=== PATIENT | female | born 1970 | race Caucasian/White ===

== ENCOUNTER 2019-10-27 16:21 | Emergency (ER) | payer OTHER, SELFPAY ==
[2019-10-27 17:26] VITALS: BP 150/95; PULSE 98; RESP 20; TEMP 37.9; O2SAT 98
--- NOTE | 2019-10-27 17:49 | ED.URI ---
HPI - URI/Sore Throat General Chief Complaint: Upper Respiratory Infection Stated Complaint: Cough/watery eyes/Congestion/Chest Pain Time Seen by Provider: 10/27/19 17:45 Source: patient and RN notes reviewed Mode of arrival: ambulatory Limitations: no limitations History of Present Illness HPI Narrative: 49-year-old female presents with concern for fever, cough, congestion, chest pain with coughing, body aches. Reports [id number] cold and flu medicines with no relief MD elicited complaint: cough Related Data Home Medications Medication Instructions Recorded Confirmed Vitamin D 5,000 units PO DAILY 10/27/19 duloxetine 30 mg PO DAILY 10/27/19 10/27/19 spironolactone 25 mg PO DAILY 10/27/19 10/27/19 tizanidine 2 mg PO HS 10/27/19 10/27/19 Allergies Allergy/AdvReac Type Severity Reaction Status Date / Time No Known Allergies Allergy Mild Unverified 04/19/19 07:40 Review of Systems Review of Systems: Narrative: CONSTITUTIONAL: Reports malaise, chills, sweats, or fever. EYES: Denies visual changes, redness, or discharge. ENT: Reports rhinorrhea, congestion. Denies sinus pain, otalgia and sore throat. CARDIOVASCULAR: Denies chest pain, palpitations, or edema. RESPIRATORY: Reports cough, chest congestion, chest pain with coughing. Denies dyspnea. GASTROINTESTINAL: Denies abdominal pain, nausea, vomiting, diarrhea SKIN: Denies rash or itching. MUSCULOSKELETAL: Reports myalgia. NEUROLOGIC: Denies headache. All systems reviewed & are unremarkable except as noted in HPI and below PMFSH Comments At time of signature, agree with nursing past medical, surgical, social and family history. There is no relevant family history pertinent to the presenting complaint Exam Narrative: Exam Narrative: GENERAL: Well-appearing, well-nourished, and in no acute distress. HEAD: Normocephalic EYES: PERRLA, conjunctivae clear ENT: Nares clear, turbinates edematous and erythematous, clear discharge. Mucous membranes moist. TM pearly presley with dull light reflex bilaterally; no tragal tenderness. Oropharynx not erythematous without lesions. Tonsils not enlarged and without exudate, no drooling, no hoarseness, no trismus. NECK: Supple. No lymphadenopathy CHEST: Clear to auscultation, breath sounds equal. No wheezing, rhonchi, rales, or stridor. No respiratory distress, speaks in full sentences. HEART: Regular rate and rhythm. No murmur heard. Normal peripheral pulses. SKIN: Warm, dry, no rash. NEURO: Alert and oriented x3. PSYCH: Normal mood and affect Course Course Emergency Course: Patient is aware of diagnosis, understands and agrees to treatment plan. Anticipatory guidance given. Patient agrees to follow-up as directed and is aware of reasons to seek care at the emergency department. Portions of this record may have been created with voice recognition software Vital Signs Vital signs: Vital Signs Temperature 100.2 F H 10/27/19 17:26 Pulse Rate 98 10/27/19 17:26 Respiratory Rate 10/27/19 17:26 Blood Pressure 150/95 H 10/27/19 17:26 Pulse Oximetry 98 10/27/19 17:26 Temperature 100.2 F H 10/27/19 17:26 Pulse Rate 98 10/27/19 17:26 Respiratory Rate 10/27/19 17:26 Blood Pressure 150/95 H 10/27/19 17:26 Pulse Oximetry 98 10/27/19 17:26 Reviewed. Patient has been instructed to follow up with her primary care provider within the next week regarding her elevated blood pressure today. MDM - URI/Sore Throat MDM Narrative Medical decision making narrative: Differential diagnosis considered: Strep pharyngitis, allergic rhinitis, upper respiratory tract infection, sinusitis, rhinosinusitis, nasopharyngitis. viral pharyngitis, otitis media, otitis externa, pneumonia, bronchitis, viral cough syndrome, viral syndrome, and influenza. Exam findings show no acute concerns or changes; patient is non-toxic appearing and is in no distress. Patient is appropriate for outpatient treatment and follow-up. Lab Data Attest
== END 2019-10-27 18:00 | disposition home or self-care (01) ==
PROVIDERS: Emergency Provider Nurse Practitioner; PCP Internal Medicine
DX: J10.1 Influenza due to other identified influenza virus with other respiratory manifestations (principal); M79.7 Fibromyalgia; R25.1 Tremor, unspecified
CPT/HCPCS: 87804; 99213; G0463

== ENCOUNTER 2023-09-06 11:34 | Outpatient (CLI) | payer OTHER, SELFPAY ==
--- NOTE | ~2023-09-06 | XR_ITS ---
AP and lateral views of the bilateral hips Clinical history: Pain Findings: No acute fracture or dislocation is seen. Osseous alignment is anatomic. Bilateral hip and SI joint spaces are preserved. Soft tissues are unremarkable. Impression: No significant abnormality is seen. Reviewed, dictated and finalized at location . BINDER CHIEF Impression: No significant abnormality is seen.
--- NOTE | ~2023-09-06 | XR_ITS ---
Lumbosacral Spine: AP and lateral views Clinical History: Pain Findings: The normal lordotic curve is maintained. The vertebral bodies and posterior elements are i ntact. There is advanced degenerative disc narrowing at L2-L3. There is 3 mm anterolisthesis of L3 ov er L4. There is 4 mm anterolisthesis of L4 over L5. There is moderate to advanced facet arthropathy f rom L2 through S1. The sacroiliac joints are normally outlined. Impression: Moderate degenerative spondylosis, as above. Grade 1 retrolisthesis of L3 over L4, and L4 over L5, as detailed above. Reviewed, dictated and finalized at location M. GE TENDER Impression: Moderate degenerative spondylosis, as above. Grade 1 retrolisthesis of L3 over L4, and L4 over L5, as detailed above.
== END 2023-09-06 11:35 | disposition home or self-care (01) ==
LOC: CHSIMG 11:36
PROVIDERS: PCP Internal Medicine; Visit Provider Internal Medicine
DX: M54.50 Low back pain, unspecified (principal); M79.606 Pain in leg, unspecified; M43.06 Spondylolysis, lumbar region
CPT/HCPCS: 72100; 73521

== ENCOUNTER 2024-06-20 16:47 | Outpatient (CLI) | payer OTHER, SELFPAY ==
[2024-06-20 17:50] LABS: CRP < 0.1 mg/dL (0.0-0.9); Creatine Kinase 237 U/L (26-192)
[2024-06-22 10:24] LABS: Anti Nuclear Antibody Pattern Nuclear, Homogeneous
[2024-06-23 14:57] LABS: Aldolase 5.2 U/L (< OR = 8.1)
== END 2024-06-20 16:48 | disposition home or self-care (01) ==
LOC: CHSLAB 16:49
PROVIDERS: PCP Internal Medicine; Visit Provider Internal Medicine
DX: R74.8 Abnormal levels of other serum enzymes (principal)
CPT/HCPCS: 36415; 82085; 82550; 86038; 86039; 86140

== ENCOUNTER 2025-03-09 13:00 | Emergency (ER) | payer OTHER, SELFPAY ==
--- OUTSIDE RECORDS SUMMARY | 2025-03-09 13:06 | XMS_ITS | Encounter Summary ---
Author Organization [facility] Address 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 thurs am PROTIME: INR: 1.5 DOSING INSTRUCTIONS 7 RANGE: 2-3 spoke with pt cont lovenox for now--pt thinks this causing rash , plan dc akil 03/15/07 08:56 am ADDITIONAL TEST REQUESTS/ORDERS: . 453.8-DEEP VEIN THROMBOSIS LAB ORDERS: Order number: [id number] Test Ordered: PT WITH INR 8847 fax order to [facility] on [facility] RUN STAT ON devon 03/15/07 01:56 pm STAFF FOLLOW UP: . above lab order faxed to [facility]. /maricel Electronically Signed by: Ángela Rae on Thursday, March 15, 2007 * Jose F Broussard MD - 01/18/2008 10:59 AM CDT WEIGHT: 203lbs BLOOD PRESSURE: 140/80 Right Arm Sitting NURSE NAME: Edgar Lou N TOBACCO USE Patient does not currently use tobacco. CHIEF COMPLAINT Rash all over, itches HISTORY: HISTORY: 272.4-HYPERLIPIDEMIA lab pend, trying diet 729.5-PAIN LIMB (LEG OR ARM) improving, no med currently 783.1-ABNORMAL WEIGHT GAIN dec exercise recent 782.1-RASH since in hospital--chemical vs med, on lovenox and warfarin 453.8-DEEP VEIN THROMBOSIS on med as above ROS: ENDOCRINE: No heat or cold intolerance, no excessive thirst. CARDIAC: No chest pain, palpitations, orthopnea, dyspnea on exertion, or paroxysmal nocturnal dyspnea. RESPIRATORY: No dyspnea, cough, hemoptysis or wheezing. : No frequency, urgency, hematuria or dysuria. GI: No abdominal pain, nausea, vomiting, diarrhea, constipation, melena, or hematochezia. PAST MEDICAL HISTORY: reviewed FAMILY HISTORY: father PE SOCIAL HISTORY: PHYSICAL EXAMINATION: CONSTITUTIONAL: GENERAL APPEARANCE: Healthy appearing patient in no distress. EARS, NOSE, MOUTH AND THROAT: ORAL: Inspection of gums, lips, palate, and teeth normal. No scars, lesions, or masses. Oral mucosaunremarkable with non-inflamed posterior pharynx. NECK/THYROID: Trachea midline. No thyroid enlargement, tenderness, or mass. No supraclavicular or cervical adenopathy. RESPIRATORY: Clear to auscultation and percussion. Normal respiratory effort. CARDIOVASCULAR: CARDIAC: Regular rhythm. No murmurs, rubs, or gallops. ARTERIAL: No aortic bruits. EDEMA/VARICOSITIES OF EXTREMITIES: No edema or varicosities. GASTROINTESTINAL: ABDOMEN: Soft, non-tender, without masses. Bowel sounds active. LIVER/SPLEEN/KIDNEY: No hepatosplenomegaly, tenderness or nodularity. Kidneys not palpable. SKIN: maculopap rash diffuse trunk and ext ASSESSMENT/PLAN: 729.5-PAIN LIMB (LEG OR ARM) improving minimal tyl only , pt instructed no NSAID's 783.1-ABNORMAL WEIGHT GAIN reassess lab pend, cont try diet 453.8-DEEP VEIN THROMBOSIS off BCP--was on Loestrin, discussed, possible familial issues, check labtoday cont adj med LAB ORDERS: Order number: [id number] Test Ordered: PT WITH INR 4020 today 782.1-RASH med vs other, plan dc lovenox as soon as lab ok, if from warfarin will be a problem, consider try brand, for now ok cream, claritin daily MEDICATIONS: TRIAMCINOLONE ACETONIDE EXTERNAL CREAME 0.1 %, DIRECTED, 60 Dispensed, status: NEW PRESCRIPTION,03/14/2007. PREVENTIVE COUNSELING The patient was counseled. Patient Education: Risks, benefits, and possible side effects of medication(s) were reviewed with the patient. The adverse effects of Coumadin were discussed with the patient including the following:easy bruising, bleeding into the head, nose, intestine, and kidneys. The patient is aware of the need to contact the physician prior to any surgical and dental procedures. The patient was warned about the need to completely avoid any aspirin or anti-inflammatory products as well as any qiyk-ucj-swbnssz medications containing vitamin K. RETURN VISIT : Patient instructed to return in 1 month.note for off work until 03/21 Electronically Signed by: Jose F Broussard MD on Wednesday, March 14, 2007 documented in this encounter Plan of Treatment Not on file documented as of this encounter Visit Diagnoses Not on filedocumented in this encounter Care Teams Surgical Services Manager Relationship Specialty Start Date End Date Jose F Broussard MD [address] [place] [phone] PCP - General 03/09/07 documented as of this encounter
--- OUTSIDE RECORDS SUMMARY | 2025-03-09 13:06 | XMS_ITS | Encounter Summary ---
Author Organization [facility] Address [address] [place] [address] Care Team Providers Care Civil Engineering Designer Name Role Phone Jose F Broussard MD Primary Care Provider [phone] Encounter Details Date Type Department Care Team (Late st Contact Info) Description 06/03/[address] 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 [place] Gender Identity Not on file Sexual Orientation Not on file documented as of this encounter Last Filed Vital Signs Vital Sign Reading Time Taken Comments Blood Pressure 110/70 06/03/2004 11:00 AM CDT Pulse - - Temperature 36.9 C (98.4 F) 06/03/2004 11:00 AM CDT Respiratory Rate - - Oxygen Saturation - - Inhaled Oxygen Concentration - - Weight 78.5 kg (173 lb) 06/03/2004 11:00 AM CDT Height - - Body Mass Index - - documented in this encounter Plan of Treatment Not on file documented as of this encounter Visit Diagnoses Not on filedocumented in this encounter Care Teams Civil Engineering Designer Relationship Specialty Start Date End Date Jose F Broussard MD [address] [place] [phone] PCP - General 03/09/07 documented as of this encounter
--- OUTSIDE RECORDS SUMMARY | 2025-03-09 13:06 | XMS_ITS | Encounter Summary ---
Author Organization [facility] Address 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 ALTERNATIVE PHONE NUMBER: [phone] PHARMACY NUMBER: [phone] SECTION 1: REQUESTED ACTION kenzie 03/25/07 at 09:56 am: MEDICATION REQUEST: MEDICATION REQUEST: Patient requests a refill. Pt needs script od G-coumadin 1mg Pt taking 7mg & 8mg every other day DOCTOR`S RESPONSE: silkec 03/25/07 at 10:35 am MEDICATIONS: COUMADIN ORAL TABLET 5 MG, 1 Every Day, 30 Dispensed, 11 Fills, status: NEW PRESCRIPTION, 03/25/2007. COUMADIN ORAL TABLET 1 MG, DIRECTED, 100 Dispensed, 5 Fills, status: NEW PRESCRIPTION, 03/25/2007. please advise patient about different doses- cont same doses 03/06 FINAL ACTION: karl 03/25/07 at 11:07 am Spoke with patient 03/25/07 at 11:08 am. Called pharmacy at 03/25/07 at 11:07 am. Electronically Signed by: Antionette Dave on Sunday, March 25, 2007 documented in this encounter Plan of Treatment Not on file documented as of this encounter Visit Diagnoses Not on filedocumented in this encounter Care Teams Interior Block Wirer Relationship Specialty Start Date End Date Jose F Broussard MD [address] [place] [phone] PCP - General 03/09/07 documented as of this encounter
--- OUTSIDE RECORDS SUMMARY | 2025-03-09 13:06 | XMS_ITS | Encounter Summary ---
Author Organization [facility] Address [address] [place] [address] Care Team Providers Care Protection Chief Industrial Plant Name Role Phone Jose F Broussard MD Primary Care Provider [phone] Encounter Details Date Type Department Care Team (Late st Contact Info) Description 07/20/2005 Outpatient Historical [facility] Internal Medicine [address] [address] Jose F Broussard MD [address] [place] [phone] Social History Tobacco Use Types Packs/Day Years Used Date Smoking Tobacco: Never Assessed Comments Unknown Sex and Gender Information Value Date Recorded Sex Assigned at Not on file Legal Sex Female 4:57 AM HEADER BOSS Gender Identity Not on file Sexual Orientation Not on file documented as of this encounter Last Filed Vital Signs Vital Sign Reading Time Taken Comments Blood Pressure 130/80 07/20/2005 1:45 PM HEADER BOSS Pulse - - Temperature 36.8 C (98.2 F) 07/20/2005 1:45 PM HEADER BOSS Respiratory Rate - - Oxygen Saturation - - Inhaled Oxygen Concentration - - Weight 78 kg (172 lb) 07/20/2005 1:45 PM HEADER BOSS Height - - Body Mass Index - - documented in this encounter Plan of Treatment Not on file documented as of this encounter Visit Diagnoses Not on filedocumented in this encounter Care Teams Protection Chief Industrial Plant Relationship Specialty Start Date End Date Jose F Broussard MD [address] [place] [phone] PCP - General 03/09/07 documented as of this encounter
--- OUTSIDE RECORDS SUMMARY | 2025-03-09 13:06 | XMS_ITS | Encounter Summary ---
Author Organization [facility] Address 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 [address] D.O.B: 1970 SSN: [id number] Parent/Guardian if applicable: Patient Insurance: [employer] ID#: [id number] Group#: ORDER(S) #: [id number] fredy blood flow MAY WE LEAVE MESSAGE AT THAT NUMBER: PLEASE SCHEDULE THE APPOINTMENT AT THE FOLLOWING LOCATION: WHERE SCHEDULED.[facility] [phone] SPECIAL SCHEDULING INSTRUCTIONS: scheduled 03-09-07 ORDERING PHYSICIAN: LAWANDA RON MD OFFICE RESPIRATORY CARE INSTRUCTOR & PHONE: Katt Berrios E * Lawanda Ron MD - 01/18/2008 9:44 AM CDT WEIGHT: 202lbs BLOOD PRESSURE: 120/80 Left Arm Sitting NURSE NAME: Colleen Welch R CHIEF COMPLAINT Patient complains of pain. right calf HISTORY: HISTORY: 311-DEPRESSION off med has been doing ok 783.1-ABNORMAL WEIGHT GAIN The patient denies muscle cramps, muscle spasms, weakness, or undue fatigue.on diet , ex daily, wt cont to inc 272.4-HYPERLIPIDEMIA not rechecked, watching diet 729.5-PAIN LIMB (LEG OR ARM) severe right le pain, no def injury but may have occurred on elliptical or other, father dvt 2 mo ago, dx post mortem ROS: ENDOCRINE: No heat or cold intolerance, no excessive thirst. CARDIAC: No chest pain, palpitations, orthopnea, dyspnea on exertion, or paroxysmal nocturnal dyspnea. RESPIRATORY: No dyspnea, cough, hemoptysis or wheezing. : No frequency, urgency, hematuria or dysuria. GI: No abdominal pain, nausea, vomiting, diarrhea, constipation, melena, or hematochezia. FAMILY HISTORY: father DVT SOCIAL HISTORY: TOBACCO USE: Has no significant smoking history. DISCUSSED SMOKING: neg. ALCOHOL: Does not give any significant history of alcohol usage. PHYSICAL EXAMINATION: CONSTITUTIONAL: GENERAL APPEARANCE: Healthy appearing patient in no distress. NECK/THYROID: Trachea midline. No thyroid enlargement, tenderness, or mass. No supraclavicular or cervical adenopathy. RESPIRATORY: Clear to auscultation and percussion. Normal respiratory effort. CARDIOVASCULAR: CARDIAC: Regular rhythm. No murmurs, rubs, or gallops. ARTERIAL: No aortic bruits. EDEMA/VARICOSITIES OF EXTREMITIES: No edema or varicosities. GASTROINTESTINAL: ABDOMEN: Soft, non-tender, without masses. Bowel sounds active. LIVER/SPLEEN/KIDNEY: No hepatosplenomegaly, tenderness or nodularity. Kidneys not palpable. MUSCULOSKELETAL EXAM: right calf tender, no edema no cord, full rom SKIN: SKIN: Warm, dry, no diaphoresis, no significant lesions, irritation, rashes or ulcers. No induration, obvious subcutaneous nodules or tightening. ASSESSMENT/PLAN: 311-DEPRESSION discussed hold on med 783.1-ABNORMAL WEIGHT GAIN discussed, cont diet and ex, recheck lab 729.5-PAIN LIMB (LEG OR ARM) m skel vs other r/o dvt with fhx MEDICATIONS: FLEXERIL ORAL TABLET 10 MG, 1 Every Day At Bedtime, 20 Dispensed, status: NEW PRESCRIPTION, 03/09/2007. LAB ORDERS: Order number: [id number] Test Ordered: VENOUS BLOOD FLOW (LOWER EXR) hold and call 272.4-HYPERLIPIDEMIA recheck lab was high in 05 LAB ORDERS: fasting Order number: [id number] Test Ordered: COMPREHENSIVE METABOLIC PANEL & GFR 1112 Order number: [id number] Test Ordered: LIPID PANEL 1078 Order number: [id number] Test Ordered: TSH 1720 PREVENTIVE COUNSELING The patient was counseled regarding diet, regular sustained exercise for at least 30 minutes 3-4 times per week. Patient Education: The patient was allowed to ask questions to stated satisfaction. RETURN VISIT : Instructed to call if not improving. Electronically Signed by: Lawanda Ron MD on Friday, March 09, 2007 documented in this encounter Plan of Treatment Not on file documented as of this encounter Visit Diagnoses Not on filedocumented in this encounter Care Teams Fixed Wing Aircraft Crew Chief Relationship Specialty Start Date End Date Lawanda Ron MD [address] [place] [phone] PCP - General 03/09/07 documented as of this encounter
--- OUTSIDE RECORDS SUMMARY | 2025-03-09 13:06 | XMS_ITS | Encounter Summary ---
Author Organization [facility] Address 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
--- OUTSIDE RECORDS SUMMARY | 2025-03-09 13:06 | XMS_ITS | Encounter Summary ---
Author Organization [facility] Address [address] [place], [place] [address] [address] Care Team Providers Care Casino Shift Manager Name Role Phone Unavailable Primary Care Provider Unavailabl e Encounter Details Date Type Department Care Team (Late st Contact Info) Description 04/19/2019 Lab Requisition [facility] Care Pathology Lab [address] [place] [address] Rainer Ba MD [address] [place] [address] Social History Tobacco Use Types Packs/Day Years Used Date Smoking Tobacco: Never Assessed Comments Unknown Sex and Gender Information Value Date Recorded Sex Assigned at Not on file Legal Sex Female 10:37 AM CDT Gender Identity Not on file Sexual Orientation Not on file documented as of this encounter Plan of Treatment Not on file documented as of this encounter Procedures Procedure Name Priority Date/Time Associated Diagnosis Comments FLOW CYTOMETRY BONE MARROW Routine 04/19/2019 9:05 AM CDT documented in this encounter Results * FLOW CYTOMETRY BONE MARROW (04/19/2019 9:05 AM CDT) Case Report Flow Cytometry Case: [id number] Authorizing Provider: Rainer Ba MD Collected: 04/19/2019 09:05 AM Ordering Location: [facility] Care Pathology Lab Received: 04/19/2019 10:41 AM Pathologist: Merlyn Hidalgo MD Specimen: Bone Marrow 04/19/2019 1:48 PM CDT [facility] Final Diagnosis Bone marrow, flow cytometric immunophenotypic analysis: - No evidence of non-Hodgkin lymphoma or high grade myeloid neoplasm. - See interpretation. 04/19/2019 1:48 PM CDT [facility] at 1348 CDT Flow Cytometry Interpretation The bone marrow specimen has a viability of 95%. The lymphocyte, dim CD45, monocyte, and granulocyte vang are normal in relative proportion. Within the lymphocyte region, there is no monoclonal B-cell population identified (kappa:lambda ratio is 1.6:1). There is no expanded T-cell population seen. Within the dim CD45 region, there is no increase in blasts (0.5% of all events). A bone marrow aspirate smear prepared from the flow cytometry specimen is reviewed for quality review specialist purposes. In summary, the bone marrow specimen shows no evidence of a non-Hodgkin lymphoma or high grade myeloid neoplasm. Correlation with additional clinical information and the concurrent bone marrow biopsy specimen is required. KR 04/19/2019 1:48 PM T [facility] Flow Cytometry Results Differential Result Comment Flow Cell Count /uL 42,000 Total Viability % 95.0 Lymphocytes % 19 Dim CD45 Region % 2 Monocytes % 6 Granulocytes % 70 04/19/2019 1:48 PM T [facility] Reason for test Leukocytosis 019 1:48 PM T [facility] Client Specimen ID # [id number] 04/19/2019 1:48 PM [facility] Number of markers 10 were performed. A-2 Flow CD10 A-3 Flow CD13 A-5 Flow CD20 A-1 Flow CD5 A-4 Flow CD19 A-6 Flow CD33 A-7 Flow CD34 A-8 Flow CD45 A-9 Campbell+CD19+ A-10 Lambda+CD19+ 04/19/2019 1:48 PM T [facility] Disclaimer Test performed at [facility], [address] [place] [address], [id number]. *The established laboratory minimum viability is 70%. Values below the minimum may result in the failure to find an abnormal population of cells. This test was developed and its performance characteristics determined by the Flow Cytometry Laboratory. It has not been cleared by the [place] Food and Drug Administration (FDA). The FDA has determined that such clearance or approval is not necessary. This test is used for clinical purposes. It should not be regarded as investigational or for research. This laboratory is regulated under the Clinical Laboratory Improvement Amendments of 1998 (CLIA) as a qualified to perform high complexity clinical testing. 04/19/2019 1:48 PM CDT [facility] Embedded Images 9 1:48 PM CDT [facility] Pathology/Cytolo gy BONE MARROW SPECIMEN / Unknown 04/19/2019 9:05 AM CDT 04/19/2019 10:41 AM CDT Rainer Ba MD LAB - PATHOLOGY/CYTOLOGY ORDER MARZENA Final Result Performing Organization Address City/State/[facility] Co de Phone Number [facility] [address] [phone] documented in this encounter Visit Diagnoses Not on filedocumented in this encounter
--- OUTSIDE RECORDS SUMMARY | 2025-03-09 13:06 | XMS_ITS | Clinical Summary ---
Author Organization [facility] Address [address] [place] [address] Phone Care Team Providers Care Hose Maker Name Role Phone Barry Bowens MD Primary Care Provider [phone] Encounters Date Type Department Care Team Description 02/26/2025 1:30 PM CDT - 02/26/2025 11:59 PM CDT [facility] [address] [place] [id number] Barry Bowens MD Discharge Disposition: Discharged to home or Selfcare 02/26/2025 Travel 02/19/2025 [facility] [address] [place] [address] Barry Bowens MD Encounter for screening mammogram for breast cancer (Primary Dx) from Last 3 Months Social History Tobacco Use Types Packs/Day Years Used Date Smoking Tobacco: Never Assessed Comments No Sex and Gender Information Value Date Recorded Sex Assigned at Not on file Legal Sex Female 10:52 PM CDT Gender Identity Not on file Sexual Orientation Not on file Plan of Treatment Health Maintenance Due Date Last Done Comments Hepatitis C Virus (HCV) Screening 1969 Hepatitis B Immunization (1 of 3 - 19+ 3-dose series) 1988 Cologuard 2014 Colonoscopy 2014 Colorectal Cancer Screening 2014 Immunochemical Fecal Occult Blood 2014 Influenza Immunization (#1) 04/30/202506/01, 05/30/2022, 06/25/2021, Additional history exists Mammogram 02/26/2026 02/26/2025, 05/10/2023, 12/31/2023, Additional history exists Respiratory Syncytial Virus (RSV) Immunization (Adult) (1 - 1-dose 75+ series) 2044 DTaP/Tdap/Td Immunization Discontinued 05/13/2018, TdaP Immunization Completed 05/13/2018, 09/24/2008 Zoster Immunization Completed 06/13/2022, 06/01/2022, 02/14/2022 SARS-COV-2 Immunization Completed 05/26/20 24, 06/29/2023, 09/01/2022, Additional history exists Pneumococcal Immunization (50+ years) Completed 09/11/2024, 05/15/2019 Pneumococcal Immunization Combined Discontinued 09/11/2024, 05/15/2019 Human Papillomavirus (HPV) Immunization Aged Out No longer eligible based on patient's age to complete this topic Meningococcal Immunization (ACWY) Aged Out No longer eligible based on patient's age to complete this topic Rotavirus Immunization Aged Out No lo nger eligible based on patient's age to complete this topic Procedures Procedure Name Priority Date/Time Associated Diagnosis Comments JJ SCREENING BILATERAL DIGITAL W CAD W OBDULIA Routine 02/26/2025 2:04 PM CDT Encounter for screening mammogram for breast cancer from Last 3 Months Results * JJ SCREENING BILATERAL DIGITAL W CAD W OBDULIA (02/26/2025 2:04 PM CDT) Anatomical Region Laterality Modality breast Bilateral Mammography 02/26/2025 2:00 PM CDT Narrative 02/27/2025 1:40 PM CDT - JJ SCREENING BILATERAL DIGITAL W CAD W OBDULIA BILATERAL DIGITAL SCREENING MAMMOGRAM 3D/2D WITH CAD WITH MEDIOLATERAL OBLIQUE CRANIOCAUDAL: 02/26/2025 The study was acquired using digital technology and interpreted from soft copy. Current study was also evaluated with ICAD version 7.2. 2D digital mammographic views, as well as 3D digital tomosynthesis were performed in the CC and MLO projections. CLINICAL: Routine screening. Patient has no complaints. She reports a 40 pound weight decrease. No personal history of cancer. No family history of breast cancer. COMPARISONS: Comparison is made to exams dated: 12/31/2023, 10/15/2022, and 04/30/2021 [facility]. BREAST TISSUE:There are scattered areas of fibroglandular density. FINDINGS: There are stable benign calcifications in both breasts. No significant masses, calcifications, or other findings are seen in either breast. There has been no significant interval change. IMPRESSION: BENIGN There is no mammographic evidence of malignancy. A 1 year screening mammogram is recommended. A letter will be sent to the patient with these results. The patient will be entered into a reminder system with a target due date of 1 year for her next screening exam. Electronically signed by: Chas padilla/pretty:02/26/2025 22:21:49 Compacting Machine Operator/Tender(s): RT Ana(R)(M), [facility] letter sent: Normal Exam Reading location: [facility] Mammogram BI-RADS: Category 2: Benign Procedure Note Chas Ronquillo MD - 02/27/2025 - JJ SCREENING BILATERAL DIGITAL W CAD W OBDULIA BILATERAL DIGITAL SCREENING MAMMOGRAM 3D/2D WITH CAD WITH MEDIOLATERAL OBLIQUE CRANIOCAUDAL: 02/26/2025 The study was acquired using digital technology and interpreted from soft copy. Current study was also evaluated with ICAD version 7.2. 2D digital mammographic views, as well as 3D digital tomosynthesis were performed in the CC and MLO projections. CLINICAL: Routine screening. Patient has no complaints. She reports a 40 pound weight decrease. No personal history of cancer. No family history of breast cancer. COMPARISONS: Comparison is made to exams dated: 12/31/2023, 10/15/2022, and 04/30/2021 [facility]. BREAST TISSUE:There are scattered areas of fibroglandular density. FINDINGS: There are stable benign calcifications in both breasts. No significant masses, calcifications, or other findings are seen in either breast. There has been no significant interval change. IMPRESSION: BENIGN There is no mammographic evidence of malignancy. A 1 year screening mammogram is recommended. A letter will be sent to the patient with these results. The patient will be entered into a reminder system with a target due date of 1 year for her next screening exam. Electronically signed by: Chas padilla/pretty:02/26/2025 22:21:49 Compacting Machine Operator/Tender(s): RT Ana(R)(M), [facility] letter sent: Normal Exam Reading location: [facility] Mammogram BI-RADS: Category 2: Benign Barry Bowens MD IMG MAMMO ORDERABLES Final Resu lt from Last 3 Months Insurance Care Teams Hose Maker Relationship Specialty Start Date End Date Barry Bowens MD [address] [place] [address] PCP - General Internal Medicine 12/31/23
--- OUTSIDE RECORDS SUMMARY | 2025-03-09 13:06 | XMS_ITS | Encounter Summary ---
Author Organization [facility] Address [address] [place] [address] Care Team Providers Care Title Checker Name Role Phone Jose F Broussard MD Primary Care Provider [phone] Encounter Details Date Type Department Care Team (Late st Contact Info) Description 04/14/2007 Outpatient Historical [facility] Internal Medicine [address] [address] Jose F Broussard MD [address] [place] [phone] Social History Tobacco Use Types Packs/Day Years Used Date Smoking Tobacco: Never Assessed Comments Unknown Sex and Gender Information Value Date Recorded Sex Assigned at Not on file Legal Sex Female 4:57 AM ORGANIZATION DEVELOPMENT CONSULTANT Gender Identity Not on file Sexual Orientation Not on file documented as of this encounter Last Filed Vital Signs Vital Sign Reading Time Taken Comments Blood Pressure 120/76 04/14/2007 9:00 AM CDT Pulse - - Temperature - - Respiratory Rate - - Oxygen Saturation - - Inhaled Oxygen Concentration - - Weight 93.4 kg (206 lb) 04/14/2007 9:00 AM CDT Height - - Body Mass Index - - documented in this encounter Plan of Treatment Not on file documented as of this encounter Visit Diagnoses Not on filedocumented in this encounter Care Teams Title Checker Relationship Specialty Start Date End Date Jose F Broussard MD [address] [place] [phone] PCP - General 03/09/07 documented as of this encounter
--- OUTSIDE RECORDS SUMMARY | 2025-03-09 13:06 | XMS_ITS | Encounter Summary ---
Author Organization [facility] Address [address] [place] [address] Care Team Providers Care Slurry Man Name Role Phone Jose F Broussard MD Primary Care Provider [phone] Encounter Details Date Type Department Care Team (Late st Contact Info) Description 04/22/2009 Outpatient Historical [facility] Internal Medicine [address] [address] Jose F Broussard MD [address] [place] [phone] Dysuria Social History Tobacco Use Types Packs/Day Years Used Date Smoking Tobacco: Never Alcohol Use Standard Drinks/Week Comments Yes 0 (1 standard drink = 0.6 oz pur e alcohol) Comments No Sex and Gender Information Value Date Recorded Sex Assigned at Not on file 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
--- OUTSIDE RECORDS SUMMARY | 2025-03-09 13:06 | XMS_ITS | Clinical Summary ---
Author Organization [facility] Address [address] [place] [address] Care Team Providers Care Transcriber Name Role Phone Unavailable Primary Care Provider Unavailabl e Source Comments [facility],non-owned Affiliates and Associated Physician Practices is amultiple site organization consisting of ambulatory clinics and hospital sitesin [place], [place], [place] and [place]. This disclosure is being madepursuant to the Care Everywhere program and may not contain all information available regarding this patient. Last updated 18.[facility] [employer] Social History Tobacco Use Types Packs/Day Years Used Date Smoking Tobacco: Never Assessed Comments Unknown Sex and Gender Information Value Date Recorded Sex Assigned at Not on file Legal Sex Female 10:37 AM CDT Gender Identity Not on file Sexual Orientation Not on file Plan of Treatment Health Maintenance Due Date Last Done Comments COLOGUARD (AGES 45-75) - COL ON CA SCREENING 1969 COLON MONITORING 1969 COLONOSCOPY - COLON CA SCREENING 1969 CT COLONOGRAPHY - COLON CA SCREENING 1969 Colorectal Cancer Screening 1969 FIT - COLON CA SCREENING 1969 FLEX SIG - COLON CA SCREENING 1969 LIPID TESTING 1969 MAMMOGRAM 1969 HIV SCREENING 1984 HEPATITIS C SCREENING 05/23/1987 DTAP/TDAP/TD VACCINES (1 - Tdap) 1988 HEPATITIS B VACCINE (1 of 3 - 19+ 3-dose series) 1988 PNEUMOCOCCAL VACCINE 50+ (1 of 1 - PCV) 2019 ZOSTER VACCINE (1 of 2) 2019 COVID-19 VACCINE ( - 2023-2 5 season) 2024 DEPRESSION SCREENING 08/30/2024 INFLUENZA VACCINE (#1) 2025 HIB VACCINE Aged Out No longer eligi ble based on patient's age to complete this topic HPV VACCINE Aged Out No longer eligi ble based on patient's age to complete this topic MENINGOCOCCAL (Group B) VACC INE SHARED DECISION-MAKING Aged Out No longer eligibl e based on patient's age to complete this topic MENINGOCOCCAL GROUPS A/C/Y/W VACCINE Aged Out No longer eligible b ased on patient's age to complete [place] [address]
--- OUTSIDE RECORDS SUMMARY | 2025-03-09 13:06 | XMS_ITS | Encounter Summary ---
Author Organization [facility] Address [address] [place] [address] Care Team Providers Care Equipment Monitor Phototypesetting Name Role Phone Jose F Broussard MD Primary Care Provider [phone] Encounter Details Date Type Department Care Team (Late st Contact Info) Description 03/14/2007 Outpatient Historical [facility] Internal Medicine [address] [address] Jose F Broussard MD [address] [place] [phone] Social History Tobacco Use Types Packs/Day Years Used Date Smoking Tobacco: Never Assessed Comments Unknown Sex and Gender Information Value Date Recorded Sex Assigned at Not on file 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 Gender Identity Not on file Sexual Orientation Not on file documented as of this encounter Last Filed Vital Signs Vital Sign Reading Time Taken Comments Blood Pressure 140/80 03/14/2007 11:45 AM CDT Pulse - - Temperature - - Respiratory Rate - - Oxygen Saturation - - Inhaled Oxygen Concentration - - Weight 92.1 kg (203 lb) 03/14/2007 11:45 AM CDT Height - - Body Mass Index - - documented in this encounter Plan of Treatment Not on file documented as of this encounter Visit Diagnoses Not on filedocumented in this encounter Care Teams Equipment Monitor Phototypesetting Relationship Specialty Start Date End Date Jose F Broussard MD [address] [place] [phone] PCP - General 03/09/07 documented as of this encounter
--- OUTSIDE RECORDS SUMMARY | 2025-03-09 13:06 | XMS_ITS | Encounter Summary ---
Author Organization [facility] Address [address] [place] [address] Care Team Providers Care Air Press Operator Name Role Phone Jose F Broussard MD Primary Care Provider [phone] Encounter Details Date Type Department Care Team (Late st Contact Info) Description 01/13/[address] 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 Gender Identity Not on file Sexual Orientation Not on file documented as of this encounter Last Filed Vital Signs Vital Sign Reading Time Taken Comments Blood Pressure 110/80 01/13/2005 11:15 AM CDT Pulse - - Temperature - - Respiratory Rate - - Oxygen Saturation - - Inhaled Oxygen Concentration - - Weight 84.8 kg (187 lb) 01/13/2005 11:15 AM CDT Height - - Body Mass Index - - documented in this encounter Plan of Treatment Not on file documented as of this encounter Visit Diagnoses Not on filedocumented in this encounter Care Teams Air Press Operator Relationship Specialty Start Date End Date Jose F Broussard MD [address] [place] [phone] PCP - General 03/09/07 documented as of this encounter
--- OUTSIDE RECORDS SUMMARY | 2025-03-09 13:06 | XMS_ITS | Encounter Summary ---
Author Organization [facility] Address [address] [place] [address] Care Team Providers Care Merchandise Displayer Name Role Phone Jose F Broussard MD Primary Care Provider [phone] Encounter Details Date Type Department Care Team (Latest Contact Info) Description 04/26/2009 Outpatient Historical [facility] Heart and V[facility] - [facility] [address] [place] [address] Jose F Broussard MD [address] [facility] [address] [place] [address] Embolism and Thrombosis of Other Specified Veins Social History Tobacco Use Types Packs/Day Years Used Date Smoking Tobacco: Never Alcohol Use Standard Drinks/Week Comments Yes 0 (1 standard drink = 0.6 oz pur e alcohol) Comments No Sex and Gender Information Value Date Recorded Sex Assigned at Not on file 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
--- OUTSIDE RECORDS SUMMARY | 2025-03-09 13:06 | XMS_ITS | Encounter Summary ---
Author Organization [employer] Address [address] [place] [address] Care Team Providers Care Director Of Career Services Name Role Phone Jose F Broussard MD Primary Care Provider Encounter Details Date Type Department Care Team (Late st Contact Info) Description 03/09/2007 Inpatient Historical HIS PATIENT IN A BED Buddy Rand MD [address] [place] [address] [place] [address] [facility] [address] [place] [address] Embolism and Thrombosis of Unspecified Deep Vessels of Lower Extremity (CMS/HCC) (Primary Dx) Social History Tobacco Use Types Packs/Day Years Used Date Smoking Tobacco: Never Assessed Comments Unknown Sex and Gender Information Value Date Recorded Sex Assigned at Not on file 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 Gender Identity Not on file Sexual Orientation Not on file documented as of this encounter Plan of Treatment Not on file documented as of this encounter Procedures Procedure Name Priority Date/Time Associated Diagnosis Comments PROTIME-INR Routine 03/11/2007 4:45 AM CDT CBC WITH DIFFERENTIAL Routine 03/10/2007 4:40 AM CDT CBC WITH DIFFERENTIAL Routine 03/10/2007 4:40 AM CDT PROTIME-INR Routine 03/10/2007 4:40 AM CDT TSH WITH REFLEX FT4 AND FT3 Routine 03/09/2007 8:46 PM CDT PT AND APTT Routine 03/09/2007 8:46 PM CDT CARDIOLIPIN IGG/IGM Routine 03/09/2007 8 :46 PM CDT PROTEIN S ACTIVITY Routine 03/09/2007 8: 46 PM CDT CBC WITH DIFFERENTIAL Routine 03/09/2007 8:46 PM CDT CBC WITH DIFFERENTIAL Routine 03/09/2007 8:46 PM CDT PROTEIN C ACTIVITY Routine 03/09/2007 8: 46 PM CDT LUPUS ANTICOAGULANT W/REFLEX CONFIRMATION Routine 03/09/2007 8:46 PM CDT FACTOR V LEIDEN MUTATION Routine 03/09/2007 8:46 PM CDT ANTITHROMBIN III ACTIVITY Routine 03/09/2007 8:46 PM CDT LIPID PANEL Routine 03/09/2007 8:46 PM CDT BASIC METABOLIC PANEL Routine 03/09/2007 8:46 PM CDT documented in this encounter Results * PROTIME-INR (03/11/2007 4:45 AM CDT) PROTIME 14.1 12.7 - 15.1 Seconds INTERFACE SYSTEM INR 1.1 0.9 - 1.1 INTERFACE SYSTEM Comment: INR Therapeutic Range: Adult: 2.0 - 3.0 for pulmonary embolism or prophylaxis against venous thrombosis or systemic embolization. 2.0 - 3.0 for patients with tissue heart valves. 2.5 - 3.5 for patients with mechanical heart valves or post WA. Pediatric (12 years and under): 1.5 - 3.0 Although the target range in children is not well established , INR values of 1.5 - 3.0 are recommended for most patients. Higher values have been used in children with prosthetic cardiac valves and hereditary clotting disorders. (<3 days) therapeutic ranges have not been established. 03/11/2007 4:45 AM CDT Buddy Rand MD HEMATOLOGY ORDERABLES Edited Performing Organization Address [facility] Phone Number INTERFACE SYSTEM Refer to clinic/hospital department * CBC WITH DIFFERENTIAL (03/10/2007 4:40 AM CDT) NEUTROPHILS 65 45 - 70 % INTERFAC E SYSTEM LYMPHOCYTES 23 16 - 45 % INTERFAC E SYSTEM MONOCYTES 11 3 - 13 % INTERFACE SYSTEM EOSINOPHILS 1 0 - 7 % INTERFAC E SYSTEM BASOPHILS 0 0 - 2 % INTERFACE SYSTEM NEUTROPHIL ABSOLUTE 6.29 1.90 - 7.00 K/uL INTERFACE SYSTEM LYMPHOCYTE ABSOLUTE 2.25 0.70 - 4.50 K/uL INTERFACE SYSTEM MONOCYTE ABSOLUTE 1.05 0.10 - 1.30 K/uL INTERFACE SYSTEM EOSINOPHIL ABSOLUTE 0.12 0.00 - 0.70 K/uL INTERFACE SYSTEM BASOPHILS ABSOLUTE 0.04 0.00 - 0.20 K/uL INTERFACE SYSTEM 03/10/2007 4:40 AM CDT us Leilani Cutler MD HEMATOLOGY ORDERABLES Edited Performing Organization Address [facility] Phone Number INTERFACE SYSTEM Refer to clinic/hospital department * CBC WITH DIFFERENTIAL (03/10/2007 4:40 AM CDT) WBC 9.8 4.0 - 9.8 K/uL INTERFACE SYSTEM RBC 4.38 3.90 - 4.90 M/uL INTERFACE SYSTEM HEMOGLOBIN 13.6 11.8 - 14.8 g/dL INTERFACE SYSTEM HEMATOCRIT 40.8 35.5 - 44.0 % INTERFACE SYSTEM MCV 93.2 82.0 - 99.0 fL INTERFACE SYSTEM MCH 31.1 27.2 - 32.6 pg INTERFACE SYSTEM MCHC 33.3 31.5 - 35.5 % INTERFACE SYSTEM RDW 14.2 11.5 - 14.5 % INTERFACE SYSTEM RDW-STDEV 48.2 37.1 - 48.7 fL INTERFACE SYSTEM PLATELETS 286 140 - 350 K/uL INTERFACE SYSTEM MPV 11.9 9.3 - 12.4 fL INTERFACE SYSTEM 03/10/2007 4:40 AM CDT us Leilani Cutler MD HEMATOLOGY ORDERABLES Edited Performing Organization Address City/[facility] [[email or web address]] Co de Phone Number INTERFACE SYSTEM Refer to clinic/hospital department * PROTIME-INR (03/10/2007 4:40 AM CDT) PROTIME 13.9 12.7 - 15.1 Seconds INTERFACE SYSTEM INR 1.0 0.9 - 1.1 INTERFACE SYSTEM Comment: INR Therapeutic Range: Adult: 2.0 - 3.0 for pulmonary embolism or prophylaxis against venous thrombosis or systemic embolization. 2.0 - 3.0 for patients with tissue heart valves. 2.5 - 3.5 for patients with mechanical heart valves or post WA. Pediatric (12 years and under): 1.5 - 3.0 Although the target range in children is not well established , INR values of 1.5 - 3.0 are recommended for most patients. Higher values have been used in children with prosthetic cardiac valves and hereditary clotting disorders. (<3 days) therapeutic ranges have not been established. 03/10/2007 4:40 AM CDT us Leilani Cutler MD HEMATOLOGY ORDERABLES Edited INTERFACE SYSTEM Refer to clinic/hospital department * CBC WITH DIFFERENTIAL (03/09/2007 8:46 PM CDT) NEUTROPHILS 70 45 - 70 % INTERFAC E SYSTEM LYMPHOCYTES 20 16 - 45 % INTERFAC E SYSTEM MONOCYTES 10 3 - 13 % INTERFACE SYSTEM EOSINOPHILS 1 0 - 7 % INTERFAC E SYSTEM BASOPHILS 0 0 - 2 % INTERFACE SYSTEM NEUTROPHIL ABSOLUTE 6.93 1.90 - 7.00 K/uL INTERFACE SYSTEM LYMPHOCYTE ABSOLUTE 1.94 0.70 - 4.50 K/uL INTERFACE SYSTEM MONOCYTE ABSOLUTE 0.96 0.10 - 1.30 K/uL INTERFACE SYSTEM EOSINOPHIL ABSOLUTE 0.07 0.00 - 0.70 K/uL INTERFACE SYSTEM BASOPHILS ABSOLUTE 0.02 0.00 - 0.20 K/uL INTERFACE SYSTEM 03/09/2007 8:46 PM CDT Leilani Cutler MD HEMATOLOGY ORDERABLES Edited Performing Organization Address City/[facility] de Phone Number INTERFACE SYSTEM Refer to clinic/hospital department * (ABNORMAL) CBC WITH DIFFERENTIAL (03/09/2007 8:46 PM CDT) WBC 9.9(H) 4.0 - 9.8 K/uL INTERFACE SYSTEM RBC 4.36 3.90 - 4.90 M/uL INTERFACE SYSTEM HEMOGLOBIN 13.7 11.8 - 14.8 g/dL INTERFACE SYSTEM HEMATOCRIT 40.7 35.5 - 44.0 % INTERFACE SYSTEM MCV 93.3 82.0 - 99.0 fL INTERFACE SYSTEM MCH 31.4 27.2 - 32.6 pg INTERFACE SYSTEM MCHC 33.7 31.5 - 35.5 % INTERFACE SYSTEM RDW 14.1 11.5 - 14.5 % INTERFACE SYSTEM RDW-STDEV 47.9 37.1 - 48.7 fL INTERFACE SYSTEM PLATELETS 282 140 - 350 K/uL INTERFACE SYSTEM MPV 11.5 9.3 - 12.4 fL INTERFACE SYSTEM 03/09/2007 8:46 PM CDT Leilani Cutler MD HEMATOLOGY ORDERABLES Edited Performing Organization Address [facility] Phone Number INTERFACE SYSTEM Refer to clinic/hospital department * (ABNORMAL) PROTEIN C ACTIVITY (03/09/2007 8:46 PM CDT) PROTEIN C ACTIVITY 187(H) 75 - 165 U/dL INTERFACE SYSTEM Comment: Reference ranges are not available for children or adolescents less that age 18. Performed by [facility] at [facility], [place], [place]. Note new units of measure effective 02/12/2005. Reference range values ar e not affected. Protein C may be abnormally low in the acute phase of thrombosis, other acute illnesses, liver disease, nephrotic syndrome, vitamin K deficiency, warfarin thearapy, , and estrogen-oral contraceptive use. The adult normal reference range indicated is not applicable to children or adolescents less than age 18. Comprehensive laboratory evaluation for thrombophilia with a history of premature (age 55 or younger) venous or arterial thrombosis should preferably be carried out in clinically stable patients 3 weeks after discontinuation of warfarin following an appropriate course of antithrombotic therapy. 03/09/2007 8:46 PM CDT Leilani Cutler MD HEMATOLOGY ORDERABLES Edited Performing Organization Address City/[facility] Phone Number INTERFACE SYSTEM Refer to clinic/hospital department * PROTEIN S ACTIVITY (03/09/2007 8:46 PM CDT) Pathologist [facility] PROTEIN S ACTIVITY 83 70 - 130 U/dL INTERFACE SYSTEM Comment: Performed by [facility] at [place], [place]. Note new units of measure effective 02/12/2005. Reference range values ar e not affected. 03/09/2007 8:46 PM CDT Leilani Cutler MD CHEMISTRY ORDERABLES Edited Performing Organization Address [facility] Phone Number INTERFACE SYSTEM Refer to clinic/hospital department * LUPUS ANTICOAGULANT (03/09/2007 8:46 PM CDT) Pathologist [facility] LUPUS ANTICOAGULANT Negative Negative INTERFACE SYSTEM Comment: Performed by [facility] at [facility], [place]. DRVVT (DILUTE SHAWN VIPER VENOM TIME) Negative Negative INTERFACE SYSTEM Comment:Performed by [facility] at [place], [place]. 03/09/2007 8:46 PM CDT Leilani Cutler MD HEMATOLOGY ORDERABLES Edited Performing Organization Address [facility] Phone Number INTERFACE SYSTEM Refer to clinic/hospital department * (ABNORMAL) LIPID PANEL (03/09/2007 8:46 PM CDT) CHOLESTEROL 219(H) 100 - 199 mg/dL INTERFACE SYSTEM TRIGLYCERIDE 80 10 - 149 mg/dL INTERFACE SYSTEM HDL 69(H) 40 - 59 mg/dL INTERFACE SYSTEM CHOL/HDL RATIO 3.2 2.0 - 5.0 INTER FACE SYSTEM LDL CALCULATED 134(H) <=99 mg/dL INTERFACE SYSTEM LIPID PANEL COMMENT See Below INTERFACE SYSTEM Comment: The adult ATP and pediatric NCEP classifications for lipids are available on the [facility] Intranet at: [email or web address] buy [email or web address] Select: Lab Policies and Procedures Select: Reference Ranges - Lipids 03/09/2007 8:46 PM CDT Leilani Cutler MD CHEMISTRY ORDERABLES Edited Performing Organization Address [facility] de Phone Number INTERFACE SYSTEM Refer to clinic/hospital department * TSH WITH REFLEX FT4 AND FT3 (03/09/2007 8:46 PM CDT) TSH 3.96 0.27 - 4.20 uU/mL INTERFACE SYSTEM 03/09/2007 8:46 PM CDT Leilani Cutler MD CHEMISTRY ORDERABLES Edited Performing Organization Address [facility] de Phone Number INTERFACE SYSTEM Refer to clinic/hospital department * (ABNORMAL) BASIC METABOLIC PANEL (03/09/2007 8:46 PM CDT) GLUCOSE 137(H) 65 - 99 mg/dL INTERFACE SYSTEM CREATININE 0.80 0.51 - 0.95 mg/dL INTERFACE SYSTEM CALCIUM 8.6 8.4 - 10.2 mg/dL INTERFACE SYSTEM BUN 10 6 - 20 mg/dL INTERFACE SYSTEM SODIUM 138 135 - 145 mmol/L INTERFACE SYSTEM POTASSIUM 4.0 3.5 - 4.9 mmol/L INTERFACE SYSTEM CHLORIDE 100 96 - 108 mmol/L INTERFACE SYSTEM CO2 30 22 - 30 mmol/L INTERFACE SYSTEM GFR, >60 >=60 mL/min/1. 7 sq meter INTERFACE SYSTEM GFR >60 >=60 mL/min/1. 7 sq meter INTERFACE SYSTEM Comment: Estimated GFR rate interpretative information for both Americans and non- Americans is available on the [facility] Intranet at: [email or web address] Select: Lab Policies and Procedures Select: Reference Ranges - GFR 03/09/2007 8:46 PM CDT Leilani Cutler MD CHEMISTRY ORDERABLES Edited Performing Organization Address City/[facility] de Phone Number INTERFACE SYSTEM Refer to clinic/hospital department * (ABNORMAL) PT AND APTT (03/09/2007 8:46 PM CDT) PROTIME 13.4 12.7 - 15.1 Seconds INTERFACE SYSTEM INR 1.0 0.9 - 1.1 INTERFACE SYSTEM Comment: INR Therapeutic Range: Adult: 2.0 - 3.0 for pulmonary embolism or prophylaxis against venous thrombosis or systemic embolization. 2.0 - 3.0 for patients with tissue heart valves. 2.5 - 3.5 for patients with mechanical heart valves or post [place]. Pediatric (12 years and under): 1.5 - 3.0 Although the target range in children is not well established , INR values of 1.5 - 3.0 are recommended for most patients. Higher values have been used in children with prosthetic cardiac valves and hereditary clotting disorders. (<3 days) therapeutic ranges have not been established. PTT 22.6(L) 24.4 - 36.4 Seconds INTERFACE SYSTEM Comment: PTT Therapeutic Range: Heparin Level PTT (seconds) <0.10 units/mL <53 0.10 - 0.30 units/mL 53 - 67 0.30 - 0.70 units/mL* 67 - 95* 0.70 - 1.00 units/mL 95 - 116 *corresponds to therapeutic range for unfractionated heparin Verified by repeat analysis. 03/09/2007 8:46 PM CDT Leilani Cutler MD HEMATOLOGY ORDERABLES Edited Performing Organization Address [facility] de Phone Number INTERFACE SYSTEM Refer to clinic/hospital department * ANTITHROMBIN III ACTIVITY (03/09/2007 8:46 PM CDT) ANTITHROMBIN III ACTIVITY 111 85 - 130 U/dL INTERFACE SYSTEM Comment: Performed by [facility] at [facility], [place]. 03/09/2007 8:46 PM CDT Leilani Cutler MD HEMATOLOGY ORDERABLES Edited Performing Organization Address [facility] Phone Number INTERFACE SYSTEM Refer to clinic/hospital department * CARDIOLIPIN ANTIBODY SCREEN (03/09/2007 8:46 PM CDT) Pathologist [facility] CARDIOLIPIN AB SCREEN Negative INTERFACE SYSTEM Comment: Reference range: Negative On occasion, a cardiolipin screen will yield positive results which are not confirmed by the more specific individual cardiolipin isotype assays. The screen technology is constructed to capture all possible cardiolipin positive sera. The highly specific individual cardiolipin IgM, IgG and IgA assays are used to confirm the true positive cardiolipin screen specimens, and to rule out those cardiolipin screen positive specimens that may be attributed to other undefined reactants. Lab test performed by: [employer] [place] [id number] [place], [place] JOSETTE STEWARD MD 03/09/2007 8:46 PM CDT Leilani Cutler MD CHEMISTRY ORDERABLES Edited Performing Organization Address [facility] Phone Number INTERFACE SYSTEM Refer to clinic/hospital department * FACTOR V LEIDEN MUTATION (03/09/2007 8:46 PM CDT) Pathologist [facility] FACTOR V LEIDEN MUTATION Negative Negative INTERFACE SYSTEM Comment: Mutation tested for is [id number]. Performed by [facility] at [facility], [place]. 03/09/2007 8:46 PM CDT Leilani Cutler MD HEMATOLOGY ORDERABLES Edited Performing Organization Address [facility] Phone Number INTERFACE SYSTEM Refer to clinic/hospital department documented in this encounter Visit Diagnoses Diagnosis Acute venous embolism and thrombosis of unspecified deep vessels of lower extremity- Primary documented in this encounter Care Teams Director Of Career Services Relationship Specialty Start Date End Date Jose F Broussard MD [address] [place] [address] [place] [phone] PCP - General 03/09/07 documented as of this encounter
--- OUTSIDE RECORDS SUMMARY | 2025-03-09 13:06 | XMS_ITS | Encounter Summary ---
Author Organization [facility] Address 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 Protime is high. Change dosage to the following. PROTIME: INR: 4 DOSING INSTRUCTIONS jul went high again, hold coumadin x 1d, then jul to , recheck 1 week kala 05/04/07 09:02 am STAFF FOLLOW UP: Spoke with patient and gave the following message. -tj Electronically Signed by: Lotus Cobian on Friday, May 04, 2007 documented in this encounter Plan of Treatment Not on file documented as of this encounter Visit Diagnoses Not on filedocumented in this encounter Care Teams Gold And Silver Assayer Relationship Specialty Start Date End Date Jose F Broussard MD [address] [place] [phone] PCP - General 03/09/07 documented as of this encounter
--- OUTSIDE RECORDS SUMMARY | 2025-03-09 13:06 | XMS_ITS | Encounter Summary ---
Author Organization [facility] Address 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 Gender Identity Not on file Sexual Orientation Not on file documented as of this encounter Last Filed Vital Signs Vital Sign Reading Time Taken Comments Blood Pressure 122/82 10/07/2004 11:00 AM IT HELP DESK MANAGER Pulse - - Temperature - - Respiratory Rate - - Oxygen Saturation - - Inhaled Oxygen Concentration - - Weight 81.6 kg (180 lb) 10/07/2004 11:00 AM IT HELP DESK MANAGER Height - - Body Mass Index - - documented in this encounter Plan of Treatment Not on file documented as of this encounter Visit Diagnoses Not on filedocumented in this encounter Care Teams Sleeve Ironer Relationship Specialty Start Date End Date Jose F Broussard MD [address] [place] [phone] PCP - General 03/09/07 documented as of this encounter
--- OUTSIDE RECORDS SUMMARY | 2025-03-09 13:06 | XMS_ITS | Encounter Summary ---
Author Organization [facility] Address [address] [place] [address] Care Team Providers Care Laboratory Aide Name Role Phone Jose F Broussard MD Primary Care Provider [phone] Encounter Details Date Type Department Care Team (Late st Contact Info) Description 03/09/2007 Outpatient Historical [facility] Adult Hospitalists [address] [address] Leilani Cutler MD 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
--- OUTSIDE RECORDS SUMMARY | 2025-03-09 13:06 | XMS_ITS | Encounter Summary ---
Author Organization [facility] Address 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
--- OUTSIDE RECORDS SUMMARY | 2025-03-09 13:07 | XMS_ITS | Encounter Summary ---
Author Organization [facility] Address [address] [place] [address] Care Team Providers Care Machine Washer Name Role Phone Jose F Broussard MD Primary Care Provider [phone] Encounter Details Date Type Department Care Team (Late st Contact Info) Description 07/18/2007 Orders Only [facility] Internal Medicine [address] [address] Jose F Broussard MD [address] [place] [phone] Social History Tobacco Use Types Packs/Day Years Used Date Smoking Tobacco: Never Assessed Comments Unknown Sex and Gender Information Value Date Recorded Sex Assigned at Not on file 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 Protime is ok. Continue present dosage. PROTIME: INR: 2.9 DOSING INSTRUCTIONS 9 in spite of heavy pds, not anemic, iron low, would start iron tab otc chol high, would start med kazdam 07/18/07 08:56 am MEDICATIONS: SIMVASTATIN ORAL TABLET 10 MG, 1 Every Day, 30 Dispensed, 4 Fills, status: NEW PRESCRIPTION, 07/18/2007. farrjr 07/18/07 10:49 am STAFF FOLLOW UP: Left following message. [facility] 07-18-07/3:51 spoke to pt. [facility] pharm [phone] spoke to pharm documented in this encounter Plan of Treatment Not on file documented as of this encounter Visit Diagnoses Not on filedocumented in this encounter Care Teams Machine Washer Relationship Specialty Start Date End Date Jose F Broussard MD [address] [place] [phone] PCP - General 03/09/07 documented as of this encounter
--- OUTSIDE RECORDS SUMMARY | 2025-03-09 13:07 | XMS_ITS | Clinical Summary ---
Author Organization [facility] Address [address] [place] [address] Care Team Providers Care Parish Worker Name Role Phone Jose F Broussard MD Primary Care Provider + Barry Bowens MD Unavailable [phone] Allergies No known active allergies Medications spironolactone (ALDACTONE) 25 mg tablet Take 25 mg by mouth daily 0 Active rosuvastatin (CRESTOR) 5 mg tablet 3 Active ergocalciferol, vitamin D2, (VITAMIN D2 ORAL) Active cyanocobalamin (Vitamin B-12) 250 mcg tablet daily Activ e aspirin 81 mg chewable tablet daily Acti ve losartan (COZAAR) 50 mg tablet 5 Active pregabalin (LYRICA) 50 mg capsule 5 Active Zepbound 10 mg/0.5 mL pen injector ADMINISTER 10 MG UNDER THE SKIN 1 TIME WEEKLY 5 Active Active Problems Problem Noted Date Diagnosed Date Epilepsy 10/20/2024 HLD (hyperlipidemia) 10/20/2024 Surgical History Surgery Date Site/Laterality Comments FOOT SURGERY KNEE ARTHROSCOPY SHOULDER SURGERY Right Medical History Medical History Date Comments Fibromyalgia Hypertension Depression Epilepsy (HCC) Heart murmur Hyperlipidemia Hx of blood clots Family History Medical History Relation Name Comments Blood Clot Father Family history of blood clots - (Added by TW Conv) Cancer Sister 1 Family history of malignant neoplasm - (Added by TW Conv) Mental illness Sister 2 FHx: mental i llness - (Added by TW Conv) Relation Name Status Comments Father Sister 1 Sister 2 Social History Tobacco Use Types Packs/Day Years Used Date Smoking Tobacco: Never Smokeless Tobacco: Never AUDIT-C Answer Date Recorded Q1: How often do you have a drink containing alc ohol? 2-4 times a month 10/20/2024 Average Number of Drinks Not on file 025 Frequency of Binge Drinking Not on file 10/01 Comments Unknown Sex and Gender Information Value Date Recorded Sex Assigned at Not on file Legal Sex Female 9:36 AM COMMISSIONER PUBLIC WORKS Gender Identity Not on file Sexual Orientation Not on file Obstetrics History Last Filed Vital Signs Vital Sign Reading Time Taken Comments Blood Pressure 146/88 10/20/2024 9:56 AM COMMISSIONER PUBLIC WORKS Pulse 64 10/20/2024 9:56 AM COMMISSIONER PUBLIC WORKS Temperature 36.8 C (98.2 F) 10/20/2024 9:51 AM COMMISSIONER PUBLIC WORKS Respiratory Rate 23 11/02/2022 6:19 PM COMMISSIONER PUBLIC WORKS Oxygen Saturation 100% 10/20/2024 9:56 AM COMMISSIONER PUBLIC WORKS Inhaled Oxygen Concentration - - Weight 90.9 kg (200 lb 4.8 oz) 10/20/2024 9:51 A M COMMISSIONER PUBLIC WORKS Height 170.2 cm (5' 7) 10/20/2024 9:51 AM COMMISSIONER PUBLIC WORKS Body Mass Index 31.37 10/20/2024 9:51 AM COMMISSIONER PUBLIC WORKS Plan of Treatment Health Maintenance Due Date Last Done Comments Cervical Cancer Screening 1969 Colon Cancer Screening-Colonoscopy 1969 Depression Screening 1969 Hepatitis C Screening 1969 Hepatitis B Screening 1987 Regular Well Visit/Exam 18-64 1987 Covid-19 Vaccine ( season) 2024 09/01/2022, 02/14/2022, 02/14/2022, Additional history exists Breast Cancer Screening-Mammogram 12/30/2024 12/31/2023, 12/31/2023, 12/31/2023, Additional history exists Influenza Vaccine (#1) 2025 , 06/25/2021, 06/20/2021, Additional history exists DTaP/Tdap/Td Vaccine (3 - Td or Tdap) 05/13/2028 05/13/2018, 09/24/2008 Pneumococcal vaccine <65 Aged Out 05/15/2019 No longer eligible based on patient's age to complete this topic Zoster Vaccine Completed 06/13/2022, 10/2021, 02/14/2022 Insurance UHC CHOICE PLUS UHC CHOICE PLUS [facility] CHOICE PLUS Care Teams Parish Worker Relationship Specialty Start Date End Date Jose F Broussard MD PCP - General 01/08/17 Barry Bowens MD [address] [place], [place] [id number] Referring Physician Internal Medicine 06/27/24
--- OUTSIDE RECORDS SUMMARY | 2025-03-09 13:07 | XMS_ITS | Encounter Summary ---
Author Organization [facility] Address [address] [place] [address] Care Team Providers Care Machine Operator Farmworker Name Role Phone Jose F Broussard MD Primary Care Provider [phone] Encounter Details Date Type Department Care Team (Late st Contact Info) Description 07/07/2007 Outpatient Historical [facility] Internal Medicine [address] [address] Jose F Broussard MD [address] [place] [phone] Social History Tobacco Use Types Packs/Day Years Used Date Smoking Tobacco: Never Assessed Comments Unknown Sex and Gender Information Value Date Recorded Sex Assigned at Not on file Legal Sex Female 4:57 AM CLINICAL DATA PROGRAMMER Gender Identity Not on file Sexual Orientation Not on file documented as of this encounter Last Filed Vital Signs Vital Sign Reading Time Taken Comments Blood Pressure 126/80 07/07/2007 9:00 AM CLINICAL DATA PROGRAMMER Pulse - - Temperature - - Respiratory Rate - - Oxygen Saturation - - Inhaled Oxygen Concentration - - Weight 98 kg (216 lb) 07/07/2007 9:00 AM CLINICAL DATA PROGRAMMER Height - - Body Mass Index - - documented in this encounter Plan of Treatment Not on file documented as of this encounter Visit Diagnoses Not on filedocumented in this encounter Care Teams Machine Operator Farmworker Relationship Specialty Start Date End Date Jose F Broussard MD [address] [place] [phone] PCP - General 03/09/07 documented as of this encounter
--- OUTSIDE RECORDS SUMMARY | 2025-03-09 13:07 | XMS_ITS | Encounter Summary ---
Author Organization [facility] Address [address] [place] [address] Care Team Providers Care Auctioneer Art Name Role Phone Jose F Broussard MD Primary Care Provider [phone] Encounter Details Date Type Department Care Team (Late st Contact Info) Description 06/10/2007 Orders Only [facility] Internal Medicine [address] [address] Jose F Broussard MD [address] [place] [address] Social History Tobacco Use Types Packs/Day Years Used Date Smoking Tobacco: Never Assessed Comments Unknown Sex and Gender Information Value Date Recorded Sex Assigned at Not on file Legal Sex Female 4:57 AM SUGAR PLANTATION MANAGER Gender Identity Not on file Sexual Orientation Not on file documented as of this encounter Plan of Treatment Not on file documented as of this encounter Visit Diagnoses Not on filedocumented in this encounter Care Teams Auctioneer Art Relationship Specialty Start Date End Date Jose F Broussard MD [address] [place] [address] [address] [place] [address] PCP - General 03/09/07 documented as of this encounter
--- OUTSIDE RECORDS SUMMARY | 2025-03-09 13:07 | XMS_ITS | Patient Health Record ---
Author Organization [facility] Address [address] [facility] [address] [place], [place] [id number] Care Team Providers Care Management Information Systems Director Name Role Phone Eric Ulloa Unavailable [phone] Chetan Dudley Unavailable Unavailable REASON FOR REFERRAL No Information MEDICATIONS Medication SIG (Take, Route, Frequency, Duration) Notes Start Date End Date Status multivitamin Multiple Vitamins 1 cap(s) orally once a day Active Vitamin B-12 250 mcg 1 tab(s) orally onc e a day Active asprin 81mg 1 tab once a day A ctive biotin 1000 mcg 1 tab(s) orally once a day Active Vitamin D 2 1.25mg once a week Active meloxicam 15 mg 1 tab(s) orally once a day for 30 day(s) 06/13/2019 Active PROBLEMS Problem Type ICD Code Onset Dates Problem Status W/U Status Risk SNOMED Code Notes Problem Hx of deep venous thrombosis (Z86.718) Active confirmed 133871873 Problem Fatigue, unspecified type (R53.83) Active confirmed 50919057 Problem Back pain, unspecified back location, unspecified back pain laterality, unspecified chronicity (M54.9) Active confirmed 641869007 Problem LORENE positive (R76.8) Active confirmed [id number] Problem Myalgia (M79.10) Active confirmed 97617 001 Problem Polyarthralgia (M25.50) Active confirmed [id number] PLAN OF TREATMENT No Information Insurance Providers Payer Name Payer Address Payer Phone Subscriber Number Group Number Insured Name Patient Relationship to Insured Coverage Start Date Coverage End Date [facility] - CHOICE PLUS [address] [address] [place], [place] [id number] Inge Snider Self - patient is the insured 9 MEDICAL (GENERAL) HISTORY Medical History History ICD Code bruises easily blurred vision sores that won't heal Ringing in ears dizziness Blood clots chest pain difficulty breathing heart murmur frequent urination Surgical History Surgery Date(Month/Year) fractured left foot surgery 05/2017 left shoulder surgery 07/2017
--- OUTSIDE RECORDS SUMMARY | 2025-03-09 13:07 | XMS_ITS | Clinical Summary ---
Author Organization [facility] Address [address] [place] [address] Care Team Providers Care Shelf Stocker Name Role Phone Jose F Broussard MD Primary Care Provider [phone] Allergies No known active allergies Medications aspirin (ECOTRIN EC) 81 mg Oral TbEC Take 1 Tab by mouth daily. 90 Tab 3 3 Active Cholecalciferol, Vitamin D3, 2,000 unit Capsule Take by mouth. Active cyanocobalamin (VITAMIN B-12) 250 mcg Tablet 1 tab(s) Active rosuvastatin (CRESTOR) 5 mg tabletIndications:O ther hyperlipidemia TAKE 1 TABLET BY MOUTH DAILY. 90 Tablet 3 2 Active buPROPion HCL (WELLBUTRIN XL) 150 mg Extended Release 24 hour tablet TAKE 1 TABLET(150 MG) BY MOUTH DAILY IN THE MORNING 90 Tablet 2 3 Active lisinopriL (PRINIVIL) 10 mg tabletIndications:B enign hypertension TAKE 1 TABLET(10 MG) BY MOUTH DAILY 90 Tablet 3 4 Active Active Problems Patient Care Coordination No te Formatting of this note migh t be different from the original. 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 Tubular adenoma of colon 05/14/2020 Mitral valve insufficiency 05/13/2018 Vitamin D deficiency 06/05/2016 Personal history of DVT (deep vein thrombosis) 0 04/30/2015 Other hyperlipidemia 03/09/2007 Resolved Problems Problem Noted Date Diagnosed Date Resolved Date Current mild episode of hank r depressive disorder without prior episode 04/24/2021 2 DVT (deep venous thrombosis) 12/17/2009 04/30/2015 Excessive or frequent menstruation 07/07/2007 05/22/2008 Other acute embolism veins 03/14/2007 0 02/27/2014 Overview (04/24/2008): 9 mg daily Rash and other nonspecific skin eruption 03/14/2007 01/05/2008 Pain in limb 03/09/2007 01/05/2008 Acute bronchitis 07/20/2005 01/05/2008 Abnormal weight gain 01/13/2005 008 Routine general medical exam ination at a health care facility 01/13/2005 01/05/2008 Screening for thyroid disorder 01/13/2005 01/05/2008 Screening for lipoid disorders 01/13/2005 01/05/2008 Acute pharyngitis 06/03/2004 01/05/2008 Depressive disorder, not elsewhere classified 06/03/20 04 01/05/2008 Immunizations Immunization Administration Dates Next Due (ADACEL/BOOSTRIX)(10 YR UP) TDAP VACCINE, 0.5ML, IM 05/13/2018,09/24/2008 (PFIZER)(12 YR UP) COVID-19 VACCINE - EMERGENCY USE AUTHORIZATION, MRNA, [id number]) 30 MCG/0.3 ML IM SUSP 02/14/2022,06/25/2021,11/20/2020,10/28 (PNEUMOVAX 23)(50 YRS UP) PN EUMOCOCCAL POLYSACCHARIDE (PPV23) 0.5 ML, IM 05/15/2019 (SHINGRIX)(50 YRS UP) ZOSTER VACCINE RECOMBINANT, 0.5 ML, IM 06/01/2022,02/14/2022 Influenza Seasonal Unspecifi ed Formulation IM 05/30/2022,06/25/2021,05/29/2020,07/17,05/31/2018,06/28/2014,05/30/2013 ,07/09/2012,06/08/2011,06/12/2010,08/2008,06/18/2008 Influenza Vaccine Nasal 07/17/2015 Family History Medical History Relation Name Comments Hemophilia Father pe Cancer Maternal Grandfather Roe Ravi Hypertension Maternal Grandfather Roe Ravi Colon Cancer Neg Hx Relation Name Status Comments Brother 1 Brother 2 Alive Brother 3 Alive Father Maternal Grandfather Roe Ravi Mother Alive Sister 1 Alive Sister 2 Alive Social History Tobacco Use Types Packs/Day Years Used Date Smoking Tobacco: Never Smokeless Tobacco: Never Tobacco Cessation:Counseling Given: No Alcohol Use Standard Drinks/Week Comments Yes 6 (1 standard drink = 0.6 oz pur e alcohol) 3-4 drinks weekly Comments No Sex and Gender Information Value Date Recorded Sex Assigned at Not on file Legal Sex Female 4:57 AM CIVIL STRUCTURAL ENGINEER Gender Identity Not on file Sexual Orientation Not on file Last Filed Vital Signs Vital Sign Reading Time Taken Comments Blood Pressure 120/82 08/21/2022 2:46 PM CIVIL STRUCTURAL ENGINEER Pulse 96 08/21/2022 2:46 PM CIVIL STRUCTURAL ENGINEER Temperature 37 C (98.6 F) 08/21/2022 2:46 PM CIVIL STRUCTURAL ENGINEER Respiratory Rate 20 12/20/2021 7:46 AM CDT Oxygen Saturation 96% 08/21/2022 2:46 PM CIVIL STRUCTURAL ENGINEER Inhaled Oxygen Concentration - - Weight 102.1 kg (225 lb) 08/21/2022 2:46 PM CIVIL STRUCTURAL ENGINEER Height 170.2 cm (5' 7) 08/21/2022 2:46 PM CIVIL STRUCTURAL ENGINEER Body Mass Index 35.24 08/21/2022 2:46 PM CIVIL STRUCTURAL ENGINEER Plan of Treatment Health Maintenance Due Date Last Done Comments HEPATITIS B VACCINES (1 of 3 - 19+ 3-dose series) 1988 FIT/FOBT Q 1 year 2014 Flex Sig/CT Colonography Q 5 years 2014 FIT-DNA Q 3 years 02/19/2023 02/20/2020 COVID-19 Vaccine (2023-2 5 season) 2024 02/14/2022, 06/25/2021, 11/20/2020, Additional history exists Preventative Visit- Commercial 08/30/2024 0 02/13/2022, 04/02/2021, 09/22/2019, Additional history exists COLORECTAL SCREENING 12/20/2024 12/20/2021, 12/20/2021, 05/11/2020, Additional history exists Colorectal Cancer Screening 12/20/2024 BREAST CANCER SCREENING 12/30/2024 12/31/19 24, 10/15/2022, 04/30/2021, Additional history exists INFLUENZA VACCINE (#1) 2025 , 06/25/2021, 05/29/2020, Additional history exists DTAP/TDAP/TD VACCINES (3 - T d or Tdap) 05/13/2028 05/13/2018, 09/24/2008 ZOSTER VACCINE Completed 06/01/2022, 02/14/2022 Medical Devices Implanted Type Area Drywall Worker Device Identifier Shelf Expiration Date Model / Serial / Lot Clip Endo Resolution 360 235cm [id number] - [id number] Implanted:Qty: 1 on 05/11/2020 by Ja Mcneil MD at [facility] Clip N/A: Perianal [employer] [id number] 03/17/2023 [id number] / / [id number] Procedures Procedure Name Priority Date/Time Associated Diagnosis Comments MAMMO SCREEN BILAT W OR WO CAD Routine 12/31/2023 1:57 PM CDT COLONOSCOPY REPORT 12/20/2021 7: 38 AM CDT COLON CANCER SCREEN, STOOL DNA Routine 02/20/2020 10:26 AM CDT Screen for colon cancer from Last 3 Months or Most Recently Relevant to Health Maintenance Results * MAMMO SCREEN BILAT W OR WO CAD (12/31/2023 1:57 PM CDT) Anatomical Region Laterality Modality Breast Bilateral Mammography us Abstract Provider MAMMO ORDERABLES Edited Result - Final * COLONOSCOPY REPORT (12/20/2021 7:38 AM CDT) Narrative Procedure Note Ja Mcneil MD - 12/20/2021 7:37 AM CDT [facility] Endoscopy Patient Name: Inge Snider Procedure Date: 12/20/2021 Date of : 1970 Attending MD: Ja Mcneil MD Procedure: Colonoscopy Indications: Surveillance: History of adenomatous polyps, inadequate prep on last exam (<3yr), Last colonoscopy: April 2020 Providers: Ja Mcneil MD Referring MD: Jose F Broussard MD Complications: No immediate complications. Procedure: Informed consent was obtained for the procedure, including moderate sedation after risks were discussed. Based on the pre-procedure assessment, including review of the patient's medical history, medications, allergies, and review of systems, the patient was deemed to be an appropriate candidate for sedation. A timeout was performed. Continuous ECG monitoring, pulse oximetry, blood pressure monitoring, and direct observation were performed. The was introduced through the anus and advanced to the terminal ileum. The colonoscopy was performed without difficulty. The patient tolerated the procedure well. The quality of the bowel preparation was adequate to identify polyps. Estimated Blood Loss: Estimated blood loss was minimal. Findings: The digital rectal exam was normal. The terminal ileum appeared normal. A few diverticula were found in the left colon. A 6 mm polyp was found in the cecum. The polyp was sessile. The polyp was removed with a cold snare. Resection and retrieval were complete. Three semi-sessile polyps were found in the ascending colon. The polyps were 8 to 10 mm in size. These polyps were removed with a hot snare. Resection and retrieval were complete. A 2 mm polyp was found in the ascending colon. The polyp was sessile. The polyp was removed with a cold biopsy forceps. Resection and retrieval were complete. Two sessile polyps were found in the transverse colon. The polyps were 6 to 8 mm in size. These polyps were removed with a cold snare. Resection and retrieval were complete. A 4 mm polyp was found in the rectum. The polyp was sessile. The polyp was removed with a cold snare. Resection and retrieval were complete. Non-bleeding internal hemorrhoids were found. The hemorrhoids were medium-sized. No additional abnormalities were found on retroflexion. A tattoo was seen in the sigmoid colon. The tattoo site appeared normal. Impression: - The examined portion of the ileum was normal. - Diverticulosis in the left colon. - One 6 mm polyp in the cecum, removed with a cold snare. Resected and retrieved. - Three 8 to 10 mm polyps in the ascending colon, removed with a hot snare. Resected and retrieved. - One 2 mm polyp in the ascending colon, removed with a cold biopsy forceps. Resected and retrieved. - Two 6 to 8 mm polyps in the transverse colon, removed with a cold snare. Resected and retrieved. - One 4 mm polyp in the rectum, removed with a cold snare. Resected and retrieved. - Previously placed tattoo in sigmoid colon appeared normal. - Non-bleeding internal hemorrhoids. Recommendation: - Discharge patient to home. - Continue present medications. - Await pathology results. - If you are active on [facility], you will receive the biopsy results as a message via that account. If you do not have [facility] account, you will receive a call from my office regarding your results. If you do not hear from us about your results within a week, please contact our office at [phone] . Ja Mcneil MD 12/20/2021 7:37:25 AM This report has been signed electronically. Number of Addenda: [address]; [place] [address] us Ja Mcneil MD GI PROCEDURE ORDERABLES Final Result * COLON CANCER SCREEN, STOOL DNA (02/20/2020 10:26 AM CDT) COLOGUARD RESULT Positive Not Applicable [facility] Comment: It is recommended that a positive Cologuard screen be clinically correlated and followed-up with a structural examination of the colon such as diagnostic colonoscopy. Colonoscopies performed for a positive Cologuard may find as the most clinically significant lesion: colorectal cancer [4.0%], advanced adenoma (including sessile serrated polyps greater than or equal to 1cm diameter) [20%] or non- advanced adenoma [31%]; or no colorectal neoplasia [45%]. These estimates are derived from a prospective cross-sectional screening study of 10,000 individuals at average risk for colorectal cancer who were screened with both Cologuard and colonoscopy. (Table 3, Radha Serra al, N Engl J Med 2014;370(14):2243-8135.) The normal value (reference range) for this assay is negative. TEST TYPE: Composite algorithmic analysis of stool DNA-biomarkers with hemoglobin immunoassay. Quantitative values of individual biomarkers are not reportable and are not associated with individual biomarker result reference ranges. PRECAUTIONS AND LIMITATIONS: Cologuard is intended for colorectal cancer screening of adults of either sex, 45 years or older, who are at average-risk for colorectal cancer (CRC). Cologuard has been approved for use by the U.S. FDA. Cologuard may produce a false negative or false positive result. A negative Cologuard test result does not guarantee the absence of CRC or advanced adenoma (pre-cancer). Patients with a negative Cologuard test result should be advised to continue participating in a colorectal cancer screening program. The screening interval for Cologuard is currently recommended at an interval of every 3 years by the [place] [employer] Society and U.S. Multi-Society Task Force. A false positive result occurs when Cologuard produces a positive result, even though a colonoscopy may not find colorectal cancer or precancerous polyps. The performance of Cologuard has been established in a cross sectional study (i.e., single point in time) of average-risk adults aged 50-84. Cologuard performance in patients ages 45 to 49 years was estimated by sub-group analysis of near-age groups. Cologuard performance data in a 10,000 patient pivotal study using colonoscopy as the reference method can be accessed at the following location: www.[employer]/results. Additional description of the Cologuard test process, warnings and precautions can be found at www.cologuardtest.com. Rx only. Stool STOOL SPECIMEN / Unknown 02/20/2020 10:26 AM CDT 02/21/2020 8:30 PM CDT Jose F Broussard MD BODY FLUIDS AND STOOLS Final Result [facility] CLIA # [id number] [address], [address] [place] [address] from Last 3 Months or Most Recently Relevant to Health Maintenance Insurance [id number] [place] [id number] Advance Directives For more information, please contact: [phone] * Full Code (Latest Code Status on File) Date Activated Date Inactivated Comments 12/20/2021 6:23 AM 12/20/2021 10:08 AM * Full Code Date Activated Date Inactivated Comments 05/11/2020 11:07 AM 05/11/2020 4:02 PM Care Teams Shelf Stocker Relationship Specialty Start Date End Date Jose F Broussard MD [address] [place] [phone] PCP - General 03/09/07
--- OUTSIDE RECORDS SUMMARY | 2025-03-09 13:07 | XMS_ITS | Encounter Summary ---
Author Organization [facility] Address [address] [place] [address] Care Team Providers Care Lead Sales Consultant Name Role Phone Jose F Broussard MD Primary Care Provider [phone] Encounter Details Date Type Department Care Team (Late st Contact Info) Description 09/08/2007 Outpatient Historical [facility] Internal Medicine [address] [address] Jose F Broussard MD [address] [place] [phone] Social History Tobacco Use Types Packs/Day Years Used Date Smoking Tobacco: Never Assessed Comments Unknown Sex and Gender Information Value Date Recorded Sex Assigned at Not on file Legal Sex Female 4:57 AM CROSS TIE TURNER Gender Identity Not on file Sexual Orientation Not on file documented as of this encounter Plan of Treatment Not on file documented as of this encounter Visit Diagnoses Not on filedocumented in this encounter Care Teams Lead Sales Consultant Relationship Specialty Start Date End Date Jose F Broussard MD [address] [place] [address] [address] [place] [address] PCP - General 03/09/07 documented as of this encounter
--- OUTSIDE RECORDS SUMMARY | 2025-03-09 13:07 | XMS_ITS | Encounter Summary ---
Author Organization [facility] Address [address] [place] [address] Care Team Providers Care Computer Sciences Professor Name Role Phone Jose F Broussard MD Primary Care Provider [phone] Encounter Details Date Type Department Care Team (Late st Contact Info) Description 09/08/2007 Outpatient Historical [facility] Internal Medicine [address] [address] Jose F Broussard MD [address] [place] [address] Social History Tobacco Use Types Packs/Day Years Used Date Smoking Tobacco: Never Assessed Comments Unknown Sex and Gender Information Value Date Recorded Sex Assigned at Not on file Legal Sex Female 4:57 AM AGRICULTURE LABORER Gender Identity Not on file Sexual Orientation Not on file documented as of this encounter Plan of Treatment Not on file documented as of this encounter Visit Diagnoses Not on filedocumented in this encounter Care Teams Computer Sciences Professor Relationship Specialty Start Date End Date Jose F Broussard MD [address] [place] [address] [address] [place] [address] PCP - General 03/09/07 documented as of this encounter
--- OUTSIDE RECORDS SUMMARY | 2025-03-09 13:07 | XMS_ITS | Encounter Summary ---
Author Organization [facility] Address [address] [place] [address] Care Team Providers Care Assistant To The Ceo Name Role Phone Jose F Broussard MD Primary Care Provider [phone] Encounter Details Date Type Department Care Team (Late st Contact Info) Description 07/07/2007 Orders Only [facility] Internal Medicine [address] [address] Jose F Broussard MD [address] [place] [phone] Social History Tobacco Use Types Packs/Day Years Used Date Smoking Tobacco: Never Assessed Comments Unknown Sex and Gender Information Value Date Recorded Sex Assigned at Not on file Legal Sex Female 4:57 AM CERTIFIED MEDICAL ASSISTANT Gender Identity Not on file Sexual Orientation Not on file documented as of this encounter Progress Notes * Jose F Broussard MD - 01/12/2008 5:30 PM CDT WHO TOOK THE CALL: Jose F Broussard M TIME:09:17 am PROTIME: Have PT drawn in one week. Protime is ok. Continue present dosage. PROTIME: INR: 1.4 DOSING INSTRUCTIONS 9 * Jose F Broussard MD - 01/12/2008 5:30 PM CDT WEIGHT: 216lbs BLOOD PRESSURE: 126/80 Right Arm Sitting NURSE NAME: Lotus Cobian J CHIEF COMPLAINT Patient here for follow up hyperlipidemia., DVT HISTORY: HISTORY: 272.4-HYPERLIPIDEMIA The patient is somewhat compliant with the low saturated fat diet. The patienthas gained weight. 311-DEPRESSION Currently the patient is off all medication. The depression remains stable. 453.8-DEEP VEIN THROMBOSIS The patient's symptoms remain stable since the episode of deep vein thrombosis. No complications noted from the medication presently being used. 783.1-ABNORMAL WEIGHT GAIN inc lately 626.2-MENORRHAGIA/MENOMETORRHAGIA very heavy pds since on coumadin ROS: ENDOCRINE: No heat or cold intolerance, no excessive thirst. CARDIAC: No chest pain, palpitations, orthopnea, dyspnea on exertion, or paroxysmal nocturnal dyspnea. : No frequency, urgency, hematuria or dysuria. GI: No abdominal pain, nausea, vomiting, diarrhea, constipation, melena, or hematochezia. PAST MEDICAL HISTORY: reviewed SOCIAL HISTORY: TOBACCO USE: Has no significant smoking history. DISCUSSED SMOKING: neg. PHYSICAL EXAMINATION: CONSTITUTIONAL: GENERAL APPEARANCE: Healthy appearing patient in no distress. EARS, NOSE, MOUTH AND THROAT: EARS: Tympanic membranes shiny without retraction. Canals unremarkable. Hearing grossly normal. ORAL: Inspection of gums, lips, palate, and [...] tenderness or nodularity. Kidneys not palpable. SKIN: SKIN: Warm, dry, no diaphoresis, no significant lesions, irritation, rashes or ulcers. No induration, obvious subcutaneous nodules or tightening. ASSESSMENT/PLAN: 272.4-HYPERLIPIDEMIA recheck lab may need med enc diet and exercise 453.8-DEEP VEIN THROMBOSIS cont med, discussed, plan try and dc coumadin at fu LAB ORDERS: 1 week Order number: [id number] Test Ordered: CBC W/ DIFFERENTIAL 3150 Order number: [id number] Test Ordered: COMPREHENSIVE METABOLIC PANEL & GFR 1112 Order number: [id number] Test Ordered: LIPID PANEL 1078 Order number: [id number] Test Ordered: TSH 1720 Order number: [id number] Test Ordered: PT WITH INR 4020 Order number: [id number] Test Ordered: FERRITIN 1715 783.1-ABNORMAL WEIGHT GAIN lab, enc diet and ex 626.2-MENORRHAGIA/MENOMETORRHAGIA enc to dw business performance manager, try and dc coumadin at fu, discussed at length PREVENTIVE COUNSELING The patient was counseled regarding diet, regular sustained exercise for at least 30 minutes 3-4 times per week, importance of regular PAP smears. Patient Education: Risks, benefits, and possible side effects of medication(s) were reviewed with the patient. The patient was allowed to ask questions to stated satisfaction. The adverse effects of Coumadin were discussed with the patient including the following: easy bruising, bleeding into the head, nose, intestine, and kidneys. The patient is aware of the need to contact the physician prior to any surgical and dental procedures. The patient was warned about the need to completely avoid any aspirin or anti-inflammatory products as well as any mgoe-uvr-qvynyue medications containing vitaminK. RETURN VISIT : Patient instructed to return in 2 months. Electronically Signed by: Jose F Broussard MD on June documented in this encounter Plan of Treatment Not on file documented as of this encounter Visit Diagnoses Not on filedocumented in this encounter Care Teams Assistant To The Ceo Relationship Specialty Start Date End Date Jose F Broussard MD [address] [place] [address] PCP - General 03/09/07 documented as of this encounter
--- OUTSIDE RECORDS SUMMARY | 2025-03-09 13:07 | XMS_ITS | Referral Summary ---
Author Organization [facility] Address [address] [place] [address] Care Team Providers Care Plant Anatomist Name Role Phone Jose F Broussard MD Primary Care Provider + Barry Bowens MD Unavailable [phone] Allergies No known active allergies Medications [...] Diagnosed Date Epilepsy 10/20/2024 HLD (hyperlipidemia) 10/20/2024 Social History Tobacco Use Types Packs/Day Years [...] on file Legal Sex Female 9:36 AM SEMI AUTOMATIC SEWING MACHINE OPERATOR Gender Identity Not on file Sexual Orientation Not on file Last Filed Vital Signs Vital Sign Reading Time Taken Comments Blood Pressure 146/88 10/20/2024 9:56 AM SEMI AUTOMATIC SEWING MACHINE OPERATOR Pulse 64 10/20/2024 9:56 AM SEMI AUTOMATIC SEWING MACHINE OPERATOR Temperature 36.8 C (98.2 F) 10/20/2024 9:51 AM SEMI AUTOMATIC SEWING MACHINE OPERATOR Respiratory Rate 23 11/02/2022 6:19 PM SEMI AUTOMATIC SEWING MACHINE OPERATOR Oxygen Saturation 100% 10/20/2024 9:56 AM SEMI AUTOMATIC SEWING MACHINE OPERATOR Inhaled Oxygen Concentration - - Weight 90.9 kg (200 lb 4.8 oz) 10/20/2024 9:51 A M SEMI AUTOMATIC SEWING MACHINE OPERATOR Height 170.2 cm (5' 7) 10/20/2024 9:51 AM SEMI AUTOMATIC SEWING MACHINE OPERATOR Body Mass Index 31.37 10/20/2024 9:51 AM SEMI AUTOMATIC SEWING MACHINE OPERATOR Plan of Treatment Not on file Insurance [facility] CHOICE PLUS [facility] CHOICE PLUS [place] [id number] [facility] CHOICE PLUS Care Teams Plant Anatomist Relationship Specialty Start Date End Date Jose F Broussard MD PCP - General 01/08/17 Barry Bowens MD [address] [place] [address] Referring Physician Internal Medicine 06/27/24
[2025-03-09 13:17] VITALS: BP 164/98; PULSE 147; RESP 20; TEMP 37.6; O2SAT 98
[2025-03-09 13:19] LABS: EDUAAPPEAR Clear; EDUABILI Negative (Negative); EDUABLOOD 1+ (Negative); EDUACOLOR1 Yellow; EDUAGLUCOSE Negative (Negative); EDUAKETONE Negative (Negative); EDUALEUKO 2+ (Negative); EDUANITRATE Negative (Negative); EDUAPH 6.0; EDUAPROTEIN 1+ (Negative); EDUASPGRAVITY 1.010; EDUAUROBILI 0.2
--- NOTE | 2025-03-09 13:23 | ECG_ITS ---
Test Date: 2025-03-09 13:29:22 Measurements Intervals [place] Rate: 136 P: 58 ND: 139 QRS: 20 QRSD: 93 T: 62 QT: 330 QTc: 498 Interpretive Statements SINUS TACHYCARDIA INCOMPLETE RIGHT BUNDLE BRANCH BLOCK [90+ ms QRS DURATION, TERMINAL R IN V1/V2, 40+ ms S IN I/aVL/V4/V5/V6] NONSPECIFIC ST & T-WAVE ABNORMALITY ABNORMAL RHYTHM ECG WARNING: DATA QUALITY MAY AFFECT INTERPRETATION No previous ECG available for comparison Electronically Signed On 03-09-2025 22:32:58 CDT by Rachel Schafer M.D.
--- NOTE | 2025-03-09 13:38 | ED_ITS ---
HPI - Female Genitourinary General Chief complaint: Urogenital-Female Stated complaint: Urinary Problem Time Seen by Provider: 03/09/25 13:05 Source: patient and RN notes reviewed Mode of arrival: ambulatory Limitations: no limitations History of Present Illness HPI Narrative: 54-year-old female presents Express Care complaining of urinary symptoms for 7 days. Patient reports having dysuria, increased frequency, bilateral flank plain, body aches, and chills. Patient says today she feels like her symptoms are worsening. Patient denies any fevers, abdominal pain, nausea, vomiting, diarrhea. Patient has not taken anything [id number] for symptoms. Patient says she has a history of fibromyalgia and essential tremors. Related Data Home Medications ?Medication ?Instructions ?Recorded ?Confirmed ?Last Taken ?Type Vitamin D 5,000 units PO DAILY 10/27/19 Unknown History duloxetine 30 mg capsule,delayed 30 mg PO DAILY 10/27/19 03/09/25 Unknown History release sprinkle spironolactone 25 mg tablet 25 mg PO DAILY 10/27/19 10/27/19 Unknown History tizanidine 2 mg tablet 2 mg PO HS 10/27/19 03/09/25 Unknown History lisinopril 10 mg tablet mg 03/09/25 Unknown History losartan 50 mg tablet mg 03/09/25 Unknown History pregabalin 50 mg capsule mg 03/09/25 Unknown History tirzepatide (weight loss) 10 mg subcut 03/09/25 Unknown History mg/0.5 mL subcutaneous pen injector (Zepbound) Allergies Allergy/AdvReac Type Severity Reaction Status Date / Time No Known Allergies Allergy Mild Unverified 04/19/19 07:40 Review of Systems Review of Systems: CONSTITUTIONAL: Denies fever, or sweats. Positive for chills and body aches. EYES: Denies visual changes, redness, or discharge. ENT: Denies rhinorrhea, congestion, sore throat, or otalgia. CARDIOVASCULAR: Denies chest pain, palpitations, or edema. RESPIRATORY: Denies cough or dyspnea. GASTROINTESTINAL: Denies abdominal pain, nausea, vomiting, or diarrhea. GENITOURINARY: Positive for dysuria, increased frequency. Negative for he maturia. SKIN: Denies rash or itching. MUSCULOSKELETAL: Denies back pain, joint pain, or myalgia. Positive for bilateral flank pain. NEUROLOGIC: Denies headache, numbness, or weakness. PSYCHIATRIC: Denies anxiety or depression. All other systems reviewed are negative, except as documented in HPI. PMFSH Comments At the time of my signature, I reviewed and agree with the nursing past medical, surgical, social, and family history. There is no relevant family history pertinent to the patient complaint. Exam Narrative: GENERAL: This is a well-nourished, well-developed adult, in no apparent distress. They are nontoxic appearing. Patient is anxious appearing and pale. HEAD: normocephalic, atraumatic. EYES: Sclera clear/white. Vision is grossly intact. Conjunctiva normal bilaterally. Extraocular movements intact. EARS: External ears normal,Hearing grossly intact. NOSE: External nose normal THROAT: Mucous membranes moist NECK: Normal range of motion CARDIOVASCULAR: Tachycardic rate and rhythm. Normal S1-S2. No clicks, gallops, rubs, murmurs. Right Radial pulse 2 +palpable and strong RESPIRATORY: Respiratory rate normal, respiratory effort nonlabored, no respiratory distress. Lung sounds clear to auscultation throughout. Lung sounds equal bilaterally. No adventitious lung sounds. GASTROINTESTINAL: Abdomen soft, flat, non-tender, nondistended. Bowel sounds are active. No hepato-splenomegaly, or palpable masses. No guarding. No rebound tenderness. SKIN: warm, Dry, intact with no suspicious lesions or rash, good texture and turgor. Patient's skin is mottled. NEURO: awake, alert, and oriented to person, place and time. There were no obvious focal neurologic abnormalities. EXTREMITIES: No joint tenderness, effusion, or edema noted. BACK: Nontender without deformity. No CVA tenderness. Course Course Emergency Course: Portions of this record may have been created with voice recognition software Level of Care: Express Care Visit Vital Signs Vital signs: Vital Signs Temperature 99.7 F H 03/09/25 13:17 Pulse Rate 147 H 03/09/25 13:17 Respiratory Rate 03/09/25 13:17 Blood Pressure 164/98 H 03/09/25 13:17 Pulse Oximetry 98 03/09/25 13:17 Oxygen Delivery Room Air 03/09/25 13:17 Temperature 99.7 F H 03/09/25 13:17 Pulse Rate 147 H 03/09/25 13:17 Respiratory Rate 03/09/25 13:17 Blood Pressure 164/98 H 03/09/25 13:17 Pulse Oximetry 98 03/09/25 13:17 Oxygen Delivery Room Air 03/09/25 13:17 Transfer Transfered to: [facility] Transportation: Other (Private vehicle, patient refused EMS.) Transfer rationale: Possible urosepsis, patient required higher level care Accepting physician: Dr. Garza MDM - Female Genitourinary MDM Narrative Medical decision making narrative: Urine dipstick shows evidence of urinary tract infection. Patient is tachycardic, EKG obtained showed sinus tachycardia with no ischemic findings. Patient is mottled appearing and appears anxious however nontoxic. Vital signs stable other than patient's tachycardia. Patient may be showing early signs of SIRS or urosepsis. Given patient's symptoms, it is recommend the patient seek a higher level care and proceed immediately to the emergency department. Patient is agreeable to go [facility] ER. Called over to [facility] ER and spoke to Jose Kearney who is aware this patient and Dr. Garza who accepted the patient for transfer. Recommended patient to go by EMS however patient declined says she will drive herself to the hospital. Patient has the mental capacity to make informed medical decisions for herself and is currently hemodynamically stable to drive herself to the hospital. Patient advised to remain NPO and proceed immediately to the ER. Differential Diagnosis Differential diagnosis: Likely urinary tract infection, cystitis and other (Pyelonephritis) Lab Data Attestation: I reviewed the patient's lab results. Labs: Lab Results 03/09/25 Range/Units 13:16 POC Urine Color Yellow POC Urine Clarity Clear POC Urine pH 6.0 POC Ur Specif Thornton 1.010 POC Urine Protein 1+ (Negative) POC Ur Glucose (UA) Negative (Negative) POC Urine Ketones Negative (Negative) POC Urine Blood 1+ (Negative) POC Urine Nitrite Negative (Negative) POC Urine Bilirubin Negative (Negative) POC Urine Urobilinogen 0.2 POC U Leukocyte Esteras 2+ (Negative) ECG Data EKG #1: ECG completion date: 03/09/25 ECG completion time: 13:29 Prior ECG tracings: not available for review EKG Interpretation: tachycardia, sinus rhythm, no ectopy, no ST changes, normal QRS and NL axis Discharge Plan Discharge Clinical Impression: Tachycardia Urinary tract infection Qualifiers: Urinary tract infection type: site unspecified Hematuria presence: with hematuria Qualified Code(s): N39.0 - Urinary tract infection, site not specified Patient Disposition: Acute Care Hospital Condition: Stable Patient Language: Turkish Prescriptions: No Action tizanidine 2 mg Tablet 2 mg PO HS spironolactone 25 mg Tablet 25 mg PO DAILY duloxetine 30 mg Capsule, Delayed Rel Sprinkle 30 mg PO DAILY Vitamin D 5,000 UNITS 5,000 units PO DAILY methylprednisolone [Medrol (Devyn)] 4 mg tablets,dose pack See Rx Instructions .ROUTE .COMPLEX Qty: 21 0RF Rx Instructions: orally per package directions promethazine-DM 6.25-15 mg/5 mL syrup 5 ml PO Q4-6H PRN (Reason: cough) Qty: 120 0RF oseltamivir 75 mg capsule 75 mg PO BID 5 Days Qty: 10 0RF losartan 50 mg tablet lisinopril 10 mg tablet pregabalin 50 mg capsule Zepbound 10 mg/0.5 mL pen injector SUBCUT Follow-up/Referrals: Barry Bowens MD [Primary Care Provider] - Time of Disposition: 13:37
== END 2025-03-09 13:40 | disposition short-term general hospital (02) ==
PROVIDERS: PCP Internal Medicine
DX: R00.0 Tachycardia, unspecified (principal); N39.0 Urinary tract infection, site not specified; M79.7 Fibromyalgia; G25.0 Essential tremor
CPT/HCPCS: 81003; 93005; 99213; G0463

== ENCOUNTER 2025-03-29 07:12 | Outpatient (CLI) | payer OTHER, SELFPAY ==
--- NOTE | ~2025-03-29 | CT_ITS ---
Non-contrast CT scan of the Abdomen and Pelvis Clinical indication: Pyelonephritis, hematuria Technique: 2.5 mm axial scans were obtained through the abdomen and pelvis without intravenous or or al contrast. Dose reduction technique was used on this scan by utilizing automated exposure control a nd iterative reconstruction technique. The dose-length product (DLP) was 320.59 mGy-cm. Findings: Images through the lung bases reveal no abnormalities. There is mild fullness of the bilateral ureters with prominent extra renal pelves bilaterally. No sto ne or renal mass evident on this exam. The liver, spleen, pancreas, gallbladder, and right adrenal gland appear normal. 3 cm left adrenal no dule present, indeterminate by Hounsfield units on this exam. There is no aortic aneurysm. There is no evidence of bowel obstruction. Images through the pelvis were performed. There is no evidence of ascites or lymphadenopathy. Urinary bladder unremarkable. No pelvic mass seen. No ascites. Impression: Mild fullness of the bilateral ureters with extra renal pelves bilaterally. No renal stone or renal m ass identified. 3 cm left adrenal nodule, indeterminate by Hounsfield units. Follow-up MR advised to assess for adeno ma versus other lesion. Reviewed, dictated and finalized at location . Impression: Mild fullness of the bilateral ureters with extra renal pelves bilaterally. No renal stone or renal mass identified. 3 cm left adrenal nodule, indeterminate by Hounsfield units. Follow-up MR advis ed to assess for adenoma versus other lesion.
--- OUTSIDE RECORDS SUMMARY | 2025-03-29 07:16 | XMS_ITS | Encounter Summary ---
Author Organization [facility] Address [address] [place] [address] Care Team Providers Care Programmer Developer Name Role Phone Jose F Broussard MD Primary Care Provider [phone] Encounter Details Date Type Department Care Team (Latest Contact Info) Description 04/26/2009 Outpatient Historical [facility] - [facility] [address] [facility] [address] [place] [address] Jose F Broussard MD [address] [facility] [place] [address] [place] [address] Embolism and Thrombosis of Other Specified Veins Social History Tobacco Use Types Packs/Day Years Used Date Smoking Tobacco: Never Alcohol Use Standard Drinks/Week Comments Yes 0 (1 standard drink = 0.6 oz pur e alcohol) Comments No Sex and Gender Information Value Date Recorded Sex Assigned at Not on file 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
--- OUTSIDE RECORDS SUMMARY | 2025-03-29 07:16 | XMS_ITS | Encounter Summary ---
Author Organization [facility] Address [address] [place] [address] Care Team Providers Care Fence Rider Name Role Phone Jose F Broussard MD Primary Care Provider [phone] Encounter Details Date Type Department Care Team (Late st Contact Info) Description 04/22/2009 Outpatient Historical [facility] Internal Medicine [address] [address] Jose F Broussard MD [address] [place] [phone] Dysuria Social History Tobacco Use Types Packs/Day Years Used Date Smoking Tobacco: Never Alcohol Use Standard Drinks/Week Comments Yes 0 (1 standard drink = 0.6 oz pur e alcohol) Comments No Sex and Gender Information Value Date Recorded Sex Assigned at Not on file 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
--- OUTSIDE RECORDS SUMMARY | 2025-03-29 07:16 | XMS_ITS | Encounter Summary ---
Author Organization [facility] Address [address] [place] [address] Care Team Providers Care Paver Name Role Phone Jose F Broussard MD Primary Care Provider [phone] Encounter Details Date Type Department Care Team (Late st Contact Info) Description 01/13/2005 Outpatient Historical [facility] Internal Medicine [address] [address] Jose F Broussard MD [address] [place] [phone] Social History Tobacco Use Types Packs/Day Years Used Date Smoking Tobacco: Never Assessed Comments Unknown Sex and Gender Information Value Date Recorded Sex Assigned at Not on file Legal Sex Female 4:57 AM DIRECTOR CLOUD TRANSFORMATION Gender Identity Not on file Sexual Orientation [...] on filedocumented in this encounter Care Teams Paver Relationship Specialty Start Date End Date Jose F Broussard MD [address] [place] [phone] PCP - General 03/09/07 documented as of this encounter
--- OUTSIDE RECORDS SUMMARY | 2025-03-29 07:17 | XMS_ITS | Encounter Summary ---
Author Organization [facility] Address [address] [place] [address] Care Team Providers Care Network/Telecom Engineer Name Role Phone Jose F Broussard MD Primary Care Provider [phone] Encounter Details Date Type Department Care Team (Late st Contact Info) Description 10/07/2004 Outpatient Historical [facility] Internal Medicine [address] [address] Jose F Broussard MD [address] [place] [phone] Social History Tobacco Use Types Packs/Day Years Used Date Smoking Tobacco: Never Assessed Comments Unknown Sex and Gender Information Value Date Recorded Sex Assigned at Not on file Legal Sex Female 4:57 AM HOT TAR ROOFER Gender Identity Not on file Sexual Orientation Not on file documented as of this encounter Last Filed Vital Signs Vital Sign Reading Time Taken Comments Blood Pressure 122/82 10/07/2004 11:00 AM HOT TAR ROOFER Pulse - - Temperature - - Respiratory Rate - - Oxygen Saturation - - Inhaled Oxygen Concentration - - Weight 81.6 kg (180 lb) 10/07/2004 11:00 AM HOT TAR ROOFER Height - - Body Mass Index - - documented in this encounter Plan of Treatment Not on file documented as of this encounter Visit Diagnoses Not on filedocumented in this encounter Care Teams Network/Telecom Engineer Relationship Specialty Start Date End Date Jose F Broussard MD [address] [place] [phone] PCP - General 03/09/07 documented as of this encounter
--- OUTSIDE RECORDS SUMMARY | 2025-03-29 07:17 | XMS_ITS | Encounter Summary ---
Author Organization [facility] Address [address] [place] [address] Care Team Providers Care Psychologist Engineering Name Role Phone Jose F Broussard MD Primary Care Provider [phone] Encounter Details Date Type Department Care Team (Late st Contact Info) Description 06/03/2004 Outpatient Historical [facility] Internal Medicine [address] [address] Jose F Broussard MD [address] [place] [phone] Social History Tobacco Use Types Packs/Day Years Used Date Smoking Tobacco: Never Assessed Comments Unknown Sex and Gender Information Value Date Recorded Sex Assigned at Not on file Legal Sex Female 4:57 AM MAINFRAME SYSTEMS ADMINISTRATOR Gender Identity Not on file Sexual Orientation [...] on filedocumented in this encounter Care Teams Psychologist Engineering Relationship Specialty Start Date End Date Jose F Broussard MD [address] [place] [phone] PCP - General 03/09/07 documented as of this encounter
--- OUTSIDE RECORDS SUMMARY | 2025-03-29 07:17 | XMS_ITS | Encounter Summary ---
Author Organization [facility] Address [address] [place] [address] Care Team Providers Care Project Management Analyst Name Role Phone Jose F Broussard MD Primary Care Provider [phone] Encounter Details Date Type Department Care Team (Late st Contact Info) Description 03/14/2007 Outpatient Historical [facility] Internal Medicine [address] [address] Jose F Broussard MD [address] [place] [phone] Social History Tobacco Use Types Packs/Day Years Used Date Smoking Tobacco: Never Assessed Comments Unknown Sex and Gender Information Value Date Recorded Sex Assigned at Not on file Legal Sex Female 4:57 AM AIRPORT LOCATION MANAGER Gender Identity Not on file Sexual [...] on filedocumented in this encounter Care Teams Project Management Analyst Relationship Specialty Start Date End Date Jose F Broussard MD [address] [place] [phone] PCP - General 03/09/07 documented as of this encounter
--- OUTSIDE RECORDS SUMMARY | 2025-03-29 07:17 | XMS_ITS | Encounter Summary ---
Author Organization [facility] Address [address] [place] [address] Care Team Providers Care Gaggerman Name Role Phone Jose F Broussard MD Primary Care Provider [phone] Encounter Details Date Type Department Care Team (Late st Contact Info) Description 03/09/2007 Outpatient Historical [facility] [address] [address] Leilani Cutler MD [id number] [place] [address] Social History Tobacco Use Types Packs/Day Years Used Date Smoking Tobacco: Never Assessed Comments Unknown Sex and Gender Information Value Date Recorded Sex Assigned at Not on file Legal Sex Female 4:57 AM VP RESPIRATORY Gender Identity Not on file Sexual Orientation Not on file documented as of this encounter Plan of Treatment Not on file documented as of this encounter Visit Diagnoses Not on filedocumented in this encounter Care Teams Gaggerman Relationship Specialty Start Date End Date Jose F Broussard MD [address] [place] [address] [address] [place] [address] PCP - General 03/09/07 documented as of this encounter
--- OUTSIDE RECORDS SUMMARY | 2025-03-29 07:17 | XMS_ITS | Encounter Summary ---
Author Organization [facility] Address [address] [place] [address] Care Team Providers Care Emt I/99 Name Role Phone Jose F Broussard MD Primary Care Provider [phone] Encounter Details Date Type Department Care Team (Late st Contact Info) Description 03/09/2007 Outpatient Historical [facility] Internal Medicine [address] [address] Jose F Broussard MD [address] [place] [address] Social History Tobacco Use Types Packs/Day Years Used Date Smoking Tobacco: Never Assessed Comments Unknown Sex and Gender Information Value Date Recorded Sex Assigned at Not on file Legal Sex Female 4:57 AM CLAIM CLERK Gender Identity Not on file Sexual Orientation Not on file documented as of this encounter Plan of Treatment Not on file documented as of this encounter Visit Diagnoses Not on filedocumented in this encounter Care Teams Emt I/99 Relationship Specialty Start Date End Date Jose F Broussard MD [address] [place] [address] [address] [place] [address] PCP - General 03/09/07 documented as of this encounter
--- OUTSIDE RECORDS SUMMARY | 2025-03-29 07:17 | XMS_ITS | Encounter Summary ---
Author Organization [facility] Address [address] [place] [address] Care Team Providers Care Spray Maker Name Role Phone Jose F Broussard MD Primary Care Provider Encounter Details Date Type Department Care Team (Late st Contact Info) Description 03/10/2007 Outpatient Historical [facility] Adult Hospitalists [address] [address] Buddy Rand MD [address] [place] [address] Social History Tobacco Use Types Packs/Day Years Used Date Smoking Tobacco: Never Assessed Comments Unknown Sex and Gender Information Value Date Recorded Sex Assigned at Not on file Legal Sex Female 4:57 AM WAREHOUSE SUPERVISOR Gender Identity Not on file Sexual Orientation Not on file documented as of this encounter Plan of Treatment Not on file documented as of this encounter Visit Diagnoses Not on filedocumented in this encounter Care Teams Spray Maker Relationship Specialty Start Date End Date Jose F Broussard MD [address] [place] [address] [place] [address] PCP - General 03/09/07 documented as of this encounter
--- OUTSIDE RECORDS SUMMARY | 2025-03-29 07:17 | XMS_ITS | Encounter Summary ---
Author Organization [facility] Address [address] [place] [address] Care Team Providers Care Supervisor Livestock Yard Name Role Phone Jose F Broussard MD Primary Care Provider [phone] Encounter Details Date Type Department Care Team (Late st Contact Info) Description 07/20/2005 Outpatient Historical [facility] Internal Medicine [address] [address] Jose F Broussard MD [address] [place] [address] Social History Tobacco Use Types Packs/Day Years Used Date Smoking Tobacco: Never Assessed Comments Unknown Sex and Gender Information Value Date Recorded Sex Assigned at Not on file Legal Sex Female 4:57 AM BORING MILL OPERATOR Gender Identity Not on file Sexual Orientation Not on file documented as of this encounter Last Filed Vital Signs Vital Sign Reading Time Taken Comments Blood Pressure 130/80 07/20/2005 1:45 PM BORING MILL OPERATOR Pulse - - Temperature 36.8 C (98.2 F) 07/20/2005 1:45 PM BORING MILL OPERATOR Respiratory Rate - - Oxygen Saturation - - Inhaled Oxygen Concentration - - Weight 78 kg (172 lb) 07/20/2005 1:45 PM BORING MILL OPERATOR Height - - Body Mass Index - - documented in this encounter Plan of Treatment Not on file documented as of this encounter Visit Diagnoses Not on filedocumented in this encounter Care Teams Supervisor Livestock Yard Relationship Specialty Start Date End Date Jose F Broussard MD [address] [place] [phone] PCP - General 03/09/07 documented as of this encounter
--- OUTSIDE RECORDS SUMMARY | 2025-03-29 07:18 | XMS_ITS | Encounter Summary ---
Author Organization [facility] Address [address] [place] [address] Care Team Providers Care Center Machine Operator Name Role Phone Jose F Broussard MD Primary Care Provider [phone] Encounter Details Date Type Department Care Team (Late st Contact Info) Description 03/25/2007 Orders Only [facility] Internal Medicine [address] [address] [place] [address] [address] Social History Tobacco Use Types Packs/Day Years Used Date Smoking Tobacco: Never Assessed Comments Unknown Sex and Gender Information Value Date Recorded Sex Assigned at Not on file Legal Sex Female 4:57 AM PHYSICAL FITNESS TRAINER Gender Identity Not on file Sexual Orientation Not on file documented as of this encounter Progress Notes * Deandre Montero MD - 01/18/2008 12:43 PM CDT TIME:09:55 am PATIENT`S HOME PHONE: PATIENT`S WORK PHONE: PATIENT`S INSURANCE: [facility] [place] WHO TOOK THE CALL: Heinle, Beatrice, C GENERAL INFORMATION WHO CALLED: Patient called. ALTERNATIVE PHONE NUMBER: [phone] PHARMACY NUMBER: [phone] SECTION 1: REQUESTED ACTION kenzie 03/25/07 at 09:56 am: MEDICATION REQUEST: MEDICATION REQUEST: Patient requests a refill. Pt needs script od G-coumadin 1mg Pt taking 7mg & 8mg every other day DOCTOR`S RESPONSE: zina 03/25/07 at 10:35 am MEDICATIONS: COUMADIN ORAL [...] on filedocumented in this encounter Care Teams Center Machine Operator Relationship Specialty Start Date End Date Jose F Broussard MD [address] [place] [address] PCP - General 03/09/07 documented as of this encounter
--- OUTSIDE RECORDS SUMMARY | 2025-03-29 07:18 | XMS_ITS | Encounter Summary ---
Author Organization [facility] Address [address] [place] [address] Care Team Providers Care Sketch Artist Name Role Phone Jose F Broussard MD Primary Care Provider [phone] Encounter Details Date Type Department Care Team (Late st Contact Info) Description 04/14/2007 Outpatient Historical [facility] Internal Medicine [address] [address] Jose F Broussard MD [address] [place] [address] Social History Tobacco Use Types Packs/Day Years Used Date Smoking Tobacco: Never Assessed Comments Unknown Sex and Gender Information Value Date Recorded Sex Assigned at Not on file Legal Sex Female 4:57 AM PROVINCE ARCHIVIST Gender Identity Not on file Sexual Orientation [...] on filedocumented in this encounter Care Teams Sketch Artist Relationship Specialty Start Date End Date Jose F Broussard MD [address] [place] [address] PCP - General 03/09/07 documented as of this encounter
--- OUTSIDE RECORDS SUMMARY | 2025-03-29 07:18 | XMS_ITS | Clinical Summary ---
Author Organization [facility] Address [address] [place] [address] Care Team Providers Care Tray Room Worker Name Role Phone Unavailable Primary Care Provider Unavailabl e Source Comments [facility],non-owned Affiliates and Associated Physician Practices is amultiple site organization consisting of ambulatory clinics and hospital sitesin [place], [place], [place] and [place]. This disclosure is being madepursuant to the Care Everywhere program and may not contain all information available regarding this patient. Last updated 18.[facility] [employer] Social History Tobacco Use Types Packs/Day Years [...]
--- OUTSIDE RECORDS SUMMARY | 2025-03-29 07:18 | XMS_ITS | Encounter Summary ---
Author Organization [facility] Address [address] [place] [address] Care Team Providers Care Pharmacy Teacher Name Role Phone Jose F Broussard MD Primary Care Provider [phone] Encounter Details Date Type Department Care Team (Late st Contact Info) Description 05/04/[address] [facility] Internal Medicine [address] [address] Jose F Broussard MD [address] [place] [address] Social History Tobacco Use Types Packs/Day Years Used Date Smoking Tobacco: Never Assessed Comments Unknown Sex and Gender Information Value Date Recorded Sex Assigned at Not on file Legal Sex Female 4:57 AM ADVERTISING EDITOR Gender Identity Not on file Sexual Orientation [...] -tj Electronically Signed by: Lotus Cobian on Wednesday, May 04, 2007 documented in this encounter Plan of Treatment Not on file documented as of this encounter Visit Diagnoses Not on filedocumented in this encounter Care Teams Pharmacy Teacher Relationship Specialty Start Date End Date Jose F Broussard MD [address] [place] [phone] PCP - General 03/09/07 documented as of this encounter
--- OUTSIDE RECORDS SUMMARY | 2025-03-29 07:18 | XMS_ITS | Encounter Summary ---
Author Organization [facility] Address [address] [place] [address] Care Team Providers Care Unmanned Aircraft Systems Roboticist Name Role Phone Jose F Broussard MD Primary Care Provider [phone] Encounter Details Date Type Department Care Team (Late st Contact Info) Description 03/09/2007 Inpatient Historical [facility] PATIENT IN A BED Buddy Rand MD [address] [place] [address] [place] [address] [facility] [address] [place] [address] Embolism and Thrombosis of Unspecified Deep Vessels of Lower Extremity (CMS/HCC) (Primary Dx) Social History Tobacco Use Types Packs/Day Years Used Date Smoking Tobacco: Never Assessed Comments Unknown Sex and Gender Information Value Date Recorded Sex Assigned at Not on file Legal Sex Female 4:57 AM WASTEWATER PROJECT MANAGER Gender Identity Not on file Sexual [...] patients with mechanical heart valves or post AL. Pediatric (12 years and under): 1.5 - [...] MD HEMATOLOGY ORDERABLES Edited Performing Organization Address [facility] Phone Number INTERFACE SYSTEM Refer to clinic/hospital [...] MD HEMATOLOGY ORDERABLES Edited Performing Organization Address [facility] Phone Number INTERFACE SYSTEM Refer to clinic/hospital [...] MD HEMATOLOGY ORDERABLES Edited Performing Organization Address City/[facility] Co de Phone Number INTERFACE SYSTEM Refer [...] patients with mechanical heart valves or post AL. Pediatric (12 years and under): 1.5 - [...] MD HEMATOLOGY ORDERABLES Edited Performing Organization Address City/[facility] de Phone Number INTERFACE SYSTEM Refer to [...] MD HEMATOLOGY ORDERABLES Edited Performing Organization Address [facility] Phone Number INTERFACE SYSTEM Refer to clinic/hospital department * (ABNORMAL) PROTEIN C ACTIVITY (03/09/2007 8:46 PM CDT) PROTEIN C ACTIVITY 187(H) 75 - 165 U/dL INTERFACE SYSTEM Comment: Reference ranges are not available for children or adolescents less that age 18. Performed by [facility] at [facility], [place], [place]. Note new units of measure effective [...] MD HEMATOLOGY ORDERABLES Edited Performing Organization Address City/[facility] Phone Number INTERFACE SYSTEM Refer to clinic/hospital department * PROTEIN S ACTIVITY (03/09/2007 8:46 PM CDT) Pathologist [facility] [place] PROTEIN S ACTIVITY 83 70 - 130 U/dL INTERFACE SYSTEM Comment: Performed by [facility] at [place], [place]. Note new units of measure effective 02/12/2005. Reference range values ar e not affected. 03/09/2007 8:46 PM CDT Leilani Cutler MD CHEMISTRY ORDERABLES Edited Performing Organization Address [facility] Phone Number INTERFACE SYSTEM Refer to clinic/hospital department * LUPUS ANTICOAGULANT (03/09/2007 8:46 PM CDT) Pathologist [facility] [place] LUPUS ANTICOAGULANT Negative Negative INTERFACE SYSTEM Comment: Performed by [facility] at [facility], [place]. DRVVT (DILUTE SHAWN VIPER VENOM TIME) Negative Negative INTERFACE SYSTEM Comment:Performed by [facility] at [place], [place]. 03/09/2007 8:46 PM CDT Leilani Cutler MD HEMATOLOGY ORDERABLES Edited Performing Organization Address [facility] Phone Number INTERFACE SYSTEM Refer to clinic/hospital [...] classifications for lipids are available on the [facility]an[facility] at: [email or web address] [email or web address].nsf Select: Lab Policies and Procedures Select: Reference Ranges - Lipids 03/09/2007 8:46 PM CDT Leilani Cutler MD CHEMISTRY ORDERABLES Edited Performing Organization Address [facility] de Phone Number INTERFACE SYSTEM Refer to clinic/hospital department * TSH WITH REFLEX FT4 AND FT3 (03/09/2007 8:46 PM CDT) TSH 3.96 0.27 - 4.20 uU/mL INTERFACE SYSTEM 03/09/2007 8:46 PM CDT Leilani Cutler MD CHEMISTRY ORDERABLES Edited Performing Organization Address [facility] de Phone Number INTERFACE SYSTEM Refer to [...] and non- Americans is available on the [facility] Intranet at: [email or web address].nsf Select: Lab Policies and Procedures Select: Reference Ranges - GFR 03/09/2007 8:46 PM CDT Leilani Cutler MD CHEMISTRY ORDERABLES Edited Performing Organization Address City/[facility] de Phone Number INTERFACE SYSTEM Refer to [...] patients with mechanical heart valves or post AL. Pediatric (12 years and under): 1.5 - [...] MD HEMATOLOGY ORDERABLES Edited Performing Organization Address [facility] de Phone Number INTERFACE SYSTEM Refer to clinic/hospital department * ANTITHROMBIN III ACTIVITY (03/09/2007 8:46 PM CDT) ANTITHROMBIN III ACTIVITY 111 85 - 130 U/dL INTERFACE SYSTEM Comment: Performed by [facility] at [facility], [place]. 03/09/2007 8:46 PM CDT Leilani Cutler MD HEMATOLOGY ORDERABLES Edited Performing Organization Address [facility] Phone Number INTERFACE SYSTEM Refer to clinic/hospital department * CARDIOLIPIN ANTIBODY SCREEN (03/09/2007 8:46 PM CDT) Pathologist [facility] [place] CARDIOLIPIN AB SCREEN Negative INTERFACE SYSTEM Comment: [...] other undefined reactants. Lab test performed by: Shahab P. Tabatabai, Broker [place] [id number] [place], [place] JOSETTE STEWARD MD 03/09/2007 8:46 PM CDT Leilani Cutler MD CHEMISTRY ORDERABLES Edited Performing Organization Address [facility] Phone Number INTERFACE SYSTEM Refer to clinic/hospital department * FACTOR V LEIDEN MUTATION (03/09/2007 8:46 PM CDT) Pathologist [facility] [place] FACTOR V LEIDEN MUTATION Negative Negative INTERFACE SYSTEM Comment: Mutation tested for is [id number]. Performed by [facility] at [facility], [place]. 03/09/2007 8:46 PM CDT Leilani Cutler MD HEMATOLOGY ORDERABLES Edited Performing Organization Address [facility] Phone Number INTERFACE SYSTEM Refer to clinic/hospital department documented in this encounter Visit Diagnoses Diagnosis Acute venous embolism and thrombosis of unspecified deep vessels of lower extremity- Primary documented in this encounter Care Teams Unmanned Aircraft Systems Roboticist Relationship Specialty Start Date End Date Jose F Broussard MD [address] [place] [address] [place] [phone] PCP - General 03/09/07 documented as of this encounter
--- OUTSIDE RECORDS SUMMARY | 2025-03-29 07:18 | XMS_ITS | Encounter Summary ---
Author Organization [facility] Address [address] [place] [address] Care Team Providers Care Loan Inspector Name Role Phone Lawanda Ron MD Primary Care Provider [phone] Encounter Details Date Type Department Care Team (Late st Contact Info) Description 03/09/2007 Orders Only [facility] Internal Medicine [address] [address] Lawanda Ron MD [address] [place] [address] Social History Tobacco Use Types Packs/Day Years Used Date Smoking Tobacco: Never Assessed Comments Unknown Sex and Gender Information Value Date Recorded Sex Assigned at Not on file Legal Sex Female 4:57 AM ADMINISTRATIVE RESIDENT Gender Identity Not on file Sexual Orientation Not on file documented as of this encounter Progress Notes * Lawanda Ron MD - 01/18/2008 9:44 AM CDT CENTRAL TEST SCHEDULING DATE: MAR 09, 2007 Note created by: Katt Berrios E 04:48 p Patient Name : INGE PACHECO Address: [address] [address] D.O.B: 1970 SSN: [id number] Parent/Guardian if applicable: Patient Insurance: Lola Pirindola ID#: [id number] Group#: ORDER(S) #: [id number] fredy blood flow MAY WE LEAVE MESSAGE AT THAT NUMBER: PLEASE SCHEDULE THE APPOINTMENT AT THE FOLLOWING LOCATION: WHERE SCHEDULED.[facility] [phone] SPECIAL SCHEDULING INSTRUCTIONS: scheduled 03-09-07 ORDERING PHYSICIAN: LAWANDA RON MD OFFICE CEILING CLEANER & PHONE: Katt Berrios E * Lawanda [...] NEW PRESCRIPTION, 03/09/2007. LAB ORDERS: Order number: [id number] Test Ordered: VENOUS BLOOD FLOW (LOWER EXR) hold and call [phone] recheck lab was high in 05 LAB ORDERS: fasting Order number: [id number] Test Ordered: COMPREHENSIVE METABOLIC PANEL & GFR 1112 Order number: [id number] Test Ordered: LIPID PANEL 1078 Order number: [id number] Test Ordered: TSH 1720 PREVENTIVE COUNSELING The patient was counseled regarding diet, regular sustained exercise for at least 30 minutes 3-4 times per week. Patient Education: The patient was allowed to ask questions to stated satisfaction. RETURN VISIT : Instructed to call if not improving. Electronically Signed by: Lawanda Ron MD on Wednesday, March 09, 2007 documented in this encounter Plan of Treatment Not on file documented as of this encounter Visit Diagnoses Not on filedocumented in this encounter Care Teams Loan Inspector Relationship Specialty Start Date End Date Lawanda Ron MD [address] [place] [phone] PCP - General 03/09/07 documented as of this encounter
--- OUTSIDE RECORDS SUMMARY | 2025-03-29 07:18 | XMS_ITS | Clinical Summary ---
Author Organization [facility] Address [address] [place] [address] Phone Care Team Providers Care Yard Switch Operator Name Role Phone Barry Bowens MD Primary Care Provider [phone] Encounters Date Type Department Care Team Description 02/26/2025 1:30 PM CDT - 02/26/2025 11:59 PM CDT [facility] [address] [place] [phone] Barry Bowens MD Discharge Disposition: Discharged to home or Selfcare 02/26/2025 Travel 02/19/2025 [facility]cribe [facility] [address] [place] [address] Barry Bowens MD Encounter for screening mammogram [...] 06/25/2021, Additional history exists Mammogram 02/26/2026 02/26/2025, 05/0 10/2023, 12/31/2023, Additional history exists Respiratory Syncytial Virus [...] Procedure Name Priority Date/Time Associated Diagnosis Comments [facility] SCREENING BILATERAL DIGITAL W CAD W OBDULIA Routine 02/26/2025 2:04 PM CDT Encounter for screening mammogram for breast cancer from Last 3 Months Results * [facility] SCREENING BILATERAL DIGITAL W CAD W OBDULIA [...] to exams dated: 12/31/2023, 10/15/2022, and 04/30/2021 [facility]. BREAST TISSUE:There are scattered areas of fibroglandular [...] exam. Electronically signed by: Chas padilla/pretty:02/26/2025 22:21:49 Paraffin Plant Operator(s): RT Ana(R)(M), [facility] letter sent: Normal Exam Reading location: [place] [...] to exams dated: 12/31/2023, 10/15/2022, and 04/30/2021 [facility]. BREAST TISSUE:There are scattered areas of fibroglandular [...] exam. Electronically signed by: Chas padilla/pretty:02/26/2025 22:21:49 Paraffin Plant Operator(s): Shannan Wood RT(R)(M), [facility] letter sent: Normal Exam Reading location: [place] Mammogram BI-RADS: Category 2: Benign Barry Bowens MD IMG MAMMO ORDERABLES Final Resu lt from Last 3 Months Insurance Care Teams Yard Switch Operator Relationship Specialty Start Date End Date Barry Bowens MD [address] [place] [address] PCP - General Internal Medicine 12/31/23
--- OUTSIDE RECORDS SUMMARY | 2025-03-29 07:18 | XMS_ITS | Encounter Summary ---
Author Organization [facility] Address [address] [place], [place] [address] [address] Care Team Providers Care Cvicu Nurse Name Role Phone Unavailable Primary Care Provider Unavailabl e Encounter Details Date Type Department Care Team (Late st Contact Info) Description 04/19/2019 Lab Requisition [facility] Care Pathology Lab [address] [place] [address] Rainer Ba MD [address] [place] [address] Social History Tobacco Use Types [...] AM CDT) Case Report Flow Cytometry Case: [id number] Authorizing Provider: Rainer Ba MD Collected: 04/19/2019 09:05 AM Ordering Location: [facility] Care Pathology Lab Received: 04/19/2019 10:41 AM [...] flow cytometry specimen is reviewed for quality control clerk purposes. In summary, the bone marrow specimen shows no evidence of a non-Hodgkin lymphoma or high grade myeloid neoplasm. Correlation with additional clinical information and the concurrent bone marrow biopsy specimen is required. KR 04/19/2019 1:48 PM T [facility] PATHOLOGY LAB Flow Cytometry Results Differential Result Comment Flow Cell Count /uL 42,000 Total Viability % 95.0 Lymphocytes % 19 Dim CD45 Region % 2 Monocytes % 6 Granulocytes % 70 04/19/2019 1:48 PM T [facility] PATHOLOGY LAB Reason for test Leukocytosis 019 1:48 PM T [facility] PATHOLOGY LAB Client Specimen ID # [id number] 04/19/2019 1:48 PM [facility] PATHOLOGY LAB Number of markers 10 were performed. A-2 Flow CD10 A-3 Flow CD13 A-5 Flow CD20 A-1 Flow CD5 A-4 Flow CD19 A-6 Flow CD33 A-7 Flow CD34 A-8 Flow CD45 A-9 Arroyo+CD19+ A-10 Lambda+CD19+ 04/19/2019 1:48 PM T [facility] PATHOLOGY LAB Disclaimer Test performed at [facility], [address] [place] [address], [address]. *The established laboratory minimum viability is 70%. [...] complexity clinical testing. 04/19/2019 1:48 PM CDT [facility] PATHOLOGY LAB Embedded Images 9 1:48 PM CDT [facility] PATHOLOGY LAB Pathology/Cytolo gy BONE MARROW SPECIMEN / Unknown 04/19/2019 9:05 AM CDT 04/19/2019 10:41 AM CDT Rainer Ba MD LAB - PATHOLOGY/CYTOLOGY ORDER MARZENA Final Result Performing Organization Address City/State/[facility] Co de Phone Number [facility] PATHOLOGY LAB [address] [phone] documented in this encounter Visit Diagnoses Not on filedocumented in this encounter
--- OUTSIDE RECORDS SUMMARY | 2025-03-29 07:18 | XMS_ITS | Encounter Summary ---
Author Organization [facility] Address [address] [place] [address] Care Team Providers Care Director Of Product Design Name Role Phone Jose F Broussard MD Primary Care Provider [phone] Encounter Details Date Type Department Care Team (Late st Contact Info) Description 03/14/2007 Orders Only [facility] Internal Medicine [address] [address] Jose F Broussard MD [address] [place] [address] Social History Tobacco Use Types Packs/Day Years Used Date Smoking Tobacco: Never Assessed Comments Unknown Sex and Gender Information Value Date Recorded Sex Assigned at Not on file Legal Sex Female 4:57 AM PAEDIATRIC THORACIC PHYSICIAN Gender Identity Not on file Sexual Orientation [...] 453.8-DEEP VEIN THROMBOSIS LAB ORDERS: Order number: [id number] Test Ordered: PT WITH INR 8847 fax order to [facility] RUN STAT ON [place] 03/15/07 01:56 pm STAFF FOLLOW UP: . above lab order faxed to [facility]. /maricel Electronically Signed by: Ángela Rae on [...] cont adj med LAB ORDERS: Order number: [id number] Test Ordered: PT WITH INR 4020 today [...] or anti-inflammatory products as well as any mhkb-alg-cvwvbzf medications containing vitamin K. RETURN VISIT : Patient instructed to return in 1 month.note for off work until 03/21 Electronically Signed by: Jose F Broussard MD on Wednesday, March 14, 2007 documented in this encounter Plan of Treatment Not on file documented as of this encounter Visit Diagnoses Not on filedocumented in this encounter Care Teams Director Of Product Design Relationship Specialty Start Date End Date Jose F Broussard MD [address] [place] [address] [address] [place] [id number] PCP - General 03/09/07 documented as of this encounter
--- OUTSIDE RECORDS SUMMARY | 2025-03-29 07:19 | XMS_ITS | Encounter Summary ---
Author Organization [facility] Address [address] [place] [address] Care Team Providers Care Computer Architect Name Role Phone Jose F Broussard MD Primary Care Provider [phone] Encounter Details Date Type Department Care Team (Late st Contact Info) Description 09/08/2007 Outpatient Historical [facility] Internal Medicine [address] [address] Jose F Broussard MD [address] [place] [address] Social History Tobacco Use Types Packs/Day Years Used Date Smoking Tobacco: Never Assessed Comments Unknown Sex and Gender Information Value Date Recorded Sex Assigned at Not on file Legal Sex Female 4:57 AM ADJUNCT PROFESSOR OF ENGLISH Gender Identity Not on file Sexual Orientation Not on file documented as of this encounter Plan of Treatment Not on file documented as of this encounter Visit Diagnoses Not on filedocumented in this encounter Care Teams Computer Architect Relationship Specialty Start Date End Date Jose F Broussard MD [address] [place] [address] [address] [place] [address] PCP - General 03/09/07 documented as of this encounter
--- OUTSIDE RECORDS SUMMARY | 2025-03-29 07:19 | XMS_ITS | Encounter Summary ---
Author Organization [facility] Address [address] [place] [address] Care Team Providers Care Fisheries Specialist Name Role Phone Jose F Broussard MD Primary Care Provider [phone] Encounter Details Date Type Department Care Team (Late st Contact Info) Description 07/18/[address] [facility] Internal Medicine [address] [address] Jose F Broussard MD [address] [place] [address] Social History Tobacco Use Types Packs/Day Years Used Date Smoking Tobacco: Never Assessed Comments Unknown Sex and Gender Information Value Date Recorded Sex Assigned at Not on file Legal Sex Female 4:57 AM OIL BAY TECHNICIAN Gender Identity Not on file Sexual [...] tab otc chol high, would start med duydam 07/18/07 08:56 am MEDICATIONS: SIMVASTATIN ORAL TABLET 10 MG, 1 Every Day, 30 Dispensed, 4 Fills, status: NEW PRESCRIPTION, 07/18/2007. farrjr 07/18/07 10:49 am STAFF FOLLOW UP: Left following message. [email or web address] 07-18-07/3:51 spoke to pt. [email or web address] pharm [phone] spoke to pharm documented in this encounter Plan of Treatment Not on file documented as of this encounter Visit Diagnoses Not on filedocumented in this encounter Care Teams Fisheries Specialist Relationship Specialty Start Date End Date Jose F Broussard MD [address] [place] [address] PCP - General 03/09/07 documented as of this encounter
--- OUTSIDE RECORDS SUMMARY | 2025-03-29 07:19 | XMS_ITS | Patient Health Record ---
Author Organization [facility] Address [address] [facility] [address] [place], [place] [address] Care Team Providers Care Coroner Technician Name Role Phone Eric Ulloa Unavailable [phone] Chetan Dudley Unavailable Unavailable REASON FOR REFERRAL [...] of deep venous thrombosis (Z86.718) Active confirmed 273509636 Problem Fatigue, unspecified type (R53.83) Active confirmed 21777150 Problem Back pain, unspecified back location, unspecified back pain laterality, unspecified chronicity (M54.9) Active confirmed 548718836 Problem LORENE positive (R76.8) Active confirmed 731329821 Problem Myalgia (M79.10) Active confirmed 81887 001 Problem Polyarthralgia (M25.50) Active confirmed 91204433 PLAN OF TREATMENT No Information Insurance Providers Payer Name Payer Address Payer Phone Subscriber Number Group Number Insured Name Patient Relationship to Insured Coverage Start Date Coverage End Date [facility] [address] [address] [place], [place] [id number] [phone] [id number] Inge Snider Self - patient is the insured 9 MEDICAL (GENERAL) HISTORY Medical History History ICD Code bruises easily blurred vision sores that won't heal Ringing in ears dizziness Blood clots chest pain difficulty breathing heart murmur frequent urination Surgical History Surgery Date(Month/Year) fractured left foot surgery 05/2017 left shoulder surgery 07/2017
--- OUTSIDE RECORDS SUMMARY | 2025-03-29 07:19 | XMS_ITS | Clinical Summary ---
Author Organization [facility] Address [address] [place] [address] Care Team Providers Care Fiberglass Quality Technician Name Role Phone Jose F Broussard MD Primary Care Provider [phone] Allergies No known active allergies Medications aspirin [...] COVID-19 VACCINE - EMERGENCY USE AUTHORIZATION, MRNA, [id number](PF) 30 MCG/0.3 ML IM SUSP 02/14/2022,06/25/2021,11/20/2020,10/28 (PNEUMOVAX [...] on file Legal Sex Female 4:57 AM CO FOUNDER AND CEO Gender Identity Not on file Sexual Orientation Not on file Last Filed Vital Signs Vital Sign Reading Time Taken Comments Blood Pressure 120/82 08/21/2022 2:46 PM CO FOUNDER AND CEO Pulse 96 08/21/2022 2:46 PM CO FOUNDER AND CEO Temperature 37 C (98.6 F) 08/21/2022 2:46 PM CO FOUNDER AND CEO Respiratory Rate 20 12/20/2021 7:46 AM CDT Oxygen Saturation 96% 08/21/2022 2:46 PM CO FOUNDER AND CEO Inhaled Oxygen Concentration - - Weight 102.1 kg (225 lb) 08/21/2022 2:46 PM CO FOUNDER AND CEO Height 170.2 cm (5' 7) 08/21/2022 2:46 PM CO FOUNDER AND CEO Body Mass Index 35.24 08/21/2022 2:46 PM CO FOUNDER AND CEO Plan of Treatment Health Maintenance Due Date [...] 06/01/2022, 02/14/2022 Medical Devices Implanted Type Area [address] Magistrate Device Identifier Shelf Expiration Date Model / Serial / Lot Clip Endo Resolution 360 235cm [id number] - [id number] Implanted:Qty: 1 on 05/11/2020 by Ja Mcneil MD at [facility] Clip N/A: Perianal [employer] [id number] 03/17/2023 [id number] / / [id number] Procedures Procedure Name Priority Date/Time Associated Diagnosis [...] MD - 12/20/2021 7:37 AM CDT [facility] Endoscopy Patient Name: Inge Snider [...] results. - If you are active on [employer], you will receive the biopsy results as a message via that account. If you do not have [employer] account, you will receive a call from my office regarding your results. If you do not hear from us about your results within a week, please contact our office at [phone] . Ja Mcneil MD 12/20/2021 7:37:25 AM This report has been signed electronically. Number of Addenda: [address]; [place] [address] us Ja Mcneil MD GI PROCEDURE ORDERABLES Final Result * COLON CANCER SCREEN, STOOL DNA (02/20/2020 10:26 AM CDT) COLOGUARD RESULT Positive Not Applicable [facility] Comment: It is recommended that a positive [...] Radha Serra al, N Engl J Med 2014;370(14):2172-4480.) The normal value (reference range) for this [...] interval of every 3 years by the [employer] Society and U.S. Multi-Society Task Force. [...] can be accessed at the following location: www.LiveVox/results. Additional description of the Cologuard test process, warnings and precautions can be found at [email or web address]. Rx only. Stool STOOL SPECIMEN / Unknown 02/20/2020 10:26 AM CDT 02/21/2020 8:30 PM CDT Jose F Broussard MD BODY FLUIDS AND STOOLS Final Result [employer] CLIA # [id number] [address], [address] [place] [address] from Last 3 Months or Most Recently Relevant to Health Maintenance Insurance [facility] Address: [facility] [address] [place] [address] [address] [place] [id number] Advance Directives For more information, please contact: [phone] * Full Code (Latest Code Status on File) Date Activated Date Inactivated Comments 12/20/2021 6:23 AM 12/20/2021 10:08 AM * Full Code Date Activated Date Inactivated Comments 05/11/2020 11:07 AM 05/11/2020 4:02 PM Care Teams Fiberglass Quality Technician Relationship Specialty Start Date End Date Jose F Broussard MD [address] [place] [address] PCP - General 03/09/07
--- OUTSIDE RECORDS SUMMARY | 2025-03-29 07:19 | XMS_ITS | Encounter Summary ---
Author Organization [facility] Address [address] [place] [address] Care Team Providers Care Assembler For Puller Over Hand Name Role Phone Jose F Broussard MD Primary Care Provider [phone] Encounter Details Date Type Department Care Team (Late st Contact Info) Description 09/08/2007 Outpatient Historical [facility] Internal Medicine [address] [address] Jose F Broussard MD [address] [place] [address] Social History Tobacco Use Types Packs/Day Years Used Date Smoking Tobacco: Never Assessed Comments Unknown Sex and Gender Information Value Date Recorded Sex Assigned at Not on file Legal Sex Female 4:57 AM WINDOWS SERVER ENGINEER Gender Identity Not on file Sexual Orientation Not on file documented as of this encounter Plan of Treatment Not on file documented as of this encounter Visit Diagnoses Not on filedocumented in this encounter Care Teams Assembler For Puller Over Hand Relationship Specialty Start Date End Date Jose F Broussard MD [address] [place] [address] [address] [place] [address] PCP - General 03/09/07 documented as of this encounter
--- OUTSIDE RECORDS SUMMARY | 2025-03-29 07:19 | XMS_ITS | Encounter Summary ---
Author Organization [facility] Address [address] [place] [address] Care Team Providers Care Dry Yard Worker Name Role Phone Barry Bowens MD Unavailable [phone] Barry Bowens MD Primary Care Provider [phone] Encounter Details Date Type Department Care Team (Late st Contact Info) Description 03/14/2025 Results Follow-Up [facility] Emergency Department [address] [place] [address] Daniel Savage PA [address] [facility] [place] [address] Urine culture Urine Social History Tobacco Use Types Packs/Day Years Used Date Smoking Tobacco: Never Smokeless Tobacco: Never AUDIT-C Answer Date Recorded Q1: How often do you have a drink containing alc ohol? 2-4 times a month 10/20/2024 Average Number of Drinks Not on file 025 Frequency of Binge Drinking Not on file 10/01 Personal Safety Answer Date Recorded Have you ever been in or are you currently in a harmful physical or emotional relationship or is someone making you feel afraid or unsafe? Denies 03/09/2025 Comments No Sex and Gender Information Value Date Recorded Sex Assigned at Not on file Legal Sex Female 9:36 AM DEPUTY COMMONWEALTH'S ATTORNEY Gender Identity Not on file Sexual Orientation Not on file documented as of this encounter Miscellaneous Notes * Result Encounter Note - Daniel Savage PA - 03/14/2025 9:45 PM CDT Patient was started on Augmentin. Final report shows susceptible. Sent patient a message in [facility] documented in this encounter Plan of Treatment Not on file documented as of this encounter Visit Diagnoses Not on filedocumented in this encounter Care Teams Dry Yard Worker Relationship Specialty Start Date End Date Barry Bowens MD [address] [place] [address] PCP - General Internal Medicine 03/09/25 Barry Bowens MD [address] [place] [address] Referring Physician Internal Medicine 06/27/24 documented as of this encounter
--- OUTSIDE RECORDS SUMMARY | 2025-03-29 07:19 | XMS_ITS | Encounter Summary ---
Author Organization [facility] Address [address] [place] [address] Care Team Providers Care Nocturnist Name Role Phone Jose F Broussard MD Primary Care Provider [phone] Encounter Details Date Type Department Care Team (Late st Contact Info) Description 07/07/2007 Outpatient Historical [facility] Internal Medicine [address] [address] Jose F Broussard MD [address] [place] [address] Social History Tobacco Use Types Packs/Day Years Used Date Smoking Tobacco: Never Assessed Comments Unknown Sex and Gender Information Value Date Recorded Sex Assigned at Not on file Legal Sex Female 4:57 AM SENIOR SOURCING MANAGER Gender Identity Not on file Sexual Orientation Not on file documented as of this encounter Last Filed Vital Signs Vital Sign Reading Time Taken Comments Blood Pressure 126/80 07/07/2007 9:00 AM SENIOR SOURCING MANAGER Pulse - - Temperature - - Respiratory Rate - - Oxygen Saturation - - Inhaled Oxygen Concentration - - Weight 98 kg (216 lb) 07/07/2007 9:00 AM SENIOR SOURCING MANAGER Height - - Body Mass Index - - documented in this encounter Plan of Treatment Not on file documented as of this encounter Visit Diagnoses Not on filedocumented in this encounter Care Teams Nocturnist Relationship Specialty Start Date End Date Jose F Broussard MD [address] [place] [id number] PCP - General 03/09/07 documented as of this encounter
--- OUTSIDE RECORDS SUMMARY | 2025-03-29 07:19 | XMS_ITS | Encounter Summary ---
Author Organization [facility] Address [address] [place] [address] Care Team Providers Care Business Economist Name Role Phone Jose F Broussard MD Primary Care Provider [phone] Encounter Details Date Type Department Care Team (Late st Contact Info) Description 07/07/2007 Orders Only [facility] Internal Medicine [address] [address] Jose F Broussard MD [address] [place] [address] Social History Tobacco Use Types Packs/Day Years Used Date Smoking Tobacco: Never Assessed Comments Unknown Sex and Gender Information Value Date Recorded Sex Assigned at Not on file Legal Sex Female 4:57 AM CUSTOMS BROKERAGE MANAGER Gender Identity Not on file Sexual [...] fu LAB ORDERS: 1 week Order number: [id number] Test Ordered: CBC W/ DIFFERENTIAL 3150 Order number: [id number] Test Ordered: COMPREHENSIVE METABOLIC PANEL & GFR 1112 Order number: [id number] Test Ordered: LIPID PANEL 1078 Order number: [id number] Test Ordered: TSH 1720 Order number: [id number] Test Ordered: PT WITH INR 4020 Order number: [id number] Test Ordered: FERRITIN 1715 783.1-ABNORMAL WEIGHT GAIN lab, enc diet and ex 626.2-MENORRHAGIA/MENOMETORRHAGIA enc to dw filter tip inspector, try and dc coumadin at fu, discussed [...] or anti-inflammatory products as well as any mlwr-ypb-qkrzkzr medications containing vitaminK. RETURN VISIT : Patient instructed to return in 2 months. Electronically Signed by: Jose F Broussard MD on June documented in this encounter Plan of Treatment Not on file documented as of this encounter Visit Diagnoses Not on filedocumented in this encounter Care Teams Business Economist Relationship Specialty Start Date End Date Jose F Broussard MD [address] [place] [address] PCP - General 7/11/07 documented as of this encounter
--- OUTSIDE RECORDS SUMMARY | 2025-03-29 07:19 | XMS_ITS | Encounter Summary ---
Author Organization [facility] Address [address] [place] [address] Care Team Providers Care Shaker Flatwork Name Role Phone Jose F Broussard MD Primary Care Provider [phone] Encounter Details Date Type Department Care Team (Late st Contact Info) Description 06/10/2007 Orders Only [facility] Internal Medicine [address] [address] Jose F Broussard MD [address] [place] [address] Social History Tobacco Use Types Packs/Day Years Used Date Smoking Tobacco: Never Assessed Comments Unknown Sex and Gender Information Value Date Recorded Sex Assigned at Not on file Legal Sex Female 4:57 AM ELECTROPHYSIOLOGY SCIENTIST Gender Identity Not on file Sexual Orientation Not on file documented as of this encounter Plan of Treatment Not on file documented as of this encounter Visit Diagnoses Not on filedocumented in this encounter Care Teams Shaker Flatwork Relationship Specialty Start Date End Date Jose F Broussard MD [address] [place] [address] [address] [place] [address] PCP - General 03/09/07 documented as of this encounter
--- OUTSIDE RECORDS SUMMARY | 2025-03-29 07:20 | XMS_ITS | Clinical Summary ---
Author Organization [facility] Address [address] [place] [address] Care Team Providers Care Chemical Waste Management Technician Name Role Phone Barry Bowens MD Unavailable [phone] Barry Bowens MD Primary Care Provider [phone] Allergies No known active allergies Medications spironolactone [...] THE SKIN 1 TIME WEEKLY 5 Active amoxicillin-cla vulanate (AUGMENTIN) 875-125 mg per tablet Take 1 tablet by mouth every 12 (twelve) hours 14 tablet 5 Active Active Problems Problem Noted Date Diagnosed Date Epilepsy 10/20/2024 HLD (hyperlipidemia) 10/20/2024 Encounters Date Type Department Care Team Description 03/14/2025 Results Follow-Up [facility] Emergency Department [address] [place] [address] Daniel Savage PA Urine culture Urine 03/09/2025 2:40 PM CDT - 03/09/2025 7:16 PM CDT Emergency [facility] Emergency Department 1 [place] [address] Aroldo Garza MD Pyelonephritis (Primary Dx) Discharge Disposition: Discharge to home or self care from Last 3 Months Surgical History Surgery Date Site/Laterality Comments FOOT [...] FHx: mental i llness - (Added by Conv) Relation Name Status Comments Father Sister [...] on file 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 Gender Identity Not on file Sexual Orientation Not on file Obstetrics History Last Filed Vital Signs Vital Sign Reading Time Taken Comments Blood Pressure 125/84 03/09/2025 6:15 PM CDT Pulse 89 03/09/2025 6:15 PM CDT Temperature 36.7 C (98.1 F) 03/09/2025 2:08 PM CDT Respiratory Rate 16 03/09/2025 6:15 PM CDT Oxygen Saturation 96% 03/09/2025 6:15 PM CDT Inhaled Oxygen Concentration - - Weight 85.3 kg (188 lb) 03/09/2025 2:08 PM CDT Height 170.2 cm (5' 7) 03/09/2025 2:08 PM CDT Body Mass Index 29.44 03/09/2025 2:08 PM CDT Plan of Treatment Health Maintenance Due Date Last Done Comments Colon Cancer Screening-Colonoscopy 1969 Depression Screening 1969 Hepatitis C Screening 1969 Hepatitis B Screening 1987 Regular Well Visit/Exam 18-64 1987 Covid-19 Vaccine ( season) 2024 09/01/2022, 02/14/2022, 02/14/2022, Additional history exists Influenza Vaccine (#1) 2025 , 06/25/2021, 06/20/2021, Additional history exists Breast Cancer Screening-Mammogram 02/26/2026 02/26/2025, 02/26/2025, 12/31/2023, Additional history exists DTaP/Tdap/Td Vaccine (3 - Td or Tdap) 05/13/2028 05/13/2018, 09/24/2008 Pneumococcal vaccine <65 Aged Out 05/15/2019 No longer eligible based on patient's age to complete this topic Zoster Vaccine Completed 06/13/2022, 10/2021, 02/14/2022 Procedures Procedure Name Priority Date/Time Associated Diagnosis Comments CT ABDOMEN PELVIS WO CONTRAST ED 03/09/2025 4:58 PM CDT URINALYSIS, MICROSCOPIC ONLY STAT 03/09/2025 3:16 PM CDT URINALYSIS AND REFLEX TO MICROSCOPIC STAT 03/09/2025 3:16 PM CDT URINE CULTURE Routine 03/09/2025 3:16 PM CDT EGFR STAT 03/09/2025 2:15 PM CDT DIFFERENTIAL AUTO STAT 03/09/2025 2:1 5 PM CDT SEPSIS LACTATE WITH REFLEX STAT 03/09/2025 2:15 PM CDT THYROID FUNCTION CASCADE STAT 03/09/2025 2:15 PM CDT COMPREHENSIVE METABOLIC PANEL STAT 03/09/2025 2:15 PM CDT CBC WITH AUTO DIFFERENTIAL STAT 03/09/2025 2:15 PM CDT ECG 12-LEAD STAT 03/09/2025 2:07 PM CDT from Last 3 Months Results * CT Abdomen Pelvis WO Contrast (03/09/2025 4:58 PM CDT) Anatomical Region Laterality Modality Body N/A Computed Tomogra phy 03/09/2025 5:39 PM CDT Narrative 03/09/2025 5:58 PM CDT EXAM DESCRIPTION: CT ABDOMEN PELVIS WO CONTRAST REASON FOR STUDY: Sepsis, ? renal abcess Patient to ED from with complaint of bilateral lower back pain, chills, bodyaches. States that she has had painful with urination x 5 days. TECHNIQUE: CT scan of the abdomen and pelvis performed without intravenous and without oral contrast using helical scanning technique. Reconstructed coronal and sagittal MPR images reviewed. All images stored on PACS. Automated exposure control was used as a dose optimization technique for this examination. COMPARISON: None available FINDINGS: The sensitivity for detection of visceral lesions is diminished without the use of intravenous contrast. LOWER CHEST: Mild scattered subsegmental atelectasis. Mild lingular and right middle lobe scarring. No pleural effusion. Imaged portions of the heart are normal. LIVER: Normal size. No identified cystic or solid masses. Focal fatty infiltration adjacent to the hepatic falciform ligament. GALLBLADDER: Normal. BILE DUCTS: No intrahepatic or extrahepatic ductal dilatation. SPLEEN: Normal size. No focal lesions. Splenules are present. PANCREAS: No identified cystic or solid masses. No significant calcifications. No adjacent inflammation or peripancreatic fluid collections. Pancreatic duct not dilated. ADRENALS: There is a left adrenal gland lesion measuring 30 mm which likely reflects an adenoma considering Hounsfield unit characteristics. Right adrenal gland is normal. KIDNEYS/URINARY TRACT: There is asymmetric left perirenal fat stranding with left urothelial thickening along the left renal pelvis and extending to the proximal left ureter which can be seen with urinary tract infection/pyelonephritis, incompletely evaluated on this noncontrast CT examination. Mild bilateral renal atrophy. No calculi in the urinary tract. No discrete renal lesions on this noncontrast CT examination. No hydronephrosis or hydroureter. Urinary bladder is unremarkable. GI: The stomach is normal. The small bowel and colon are normal in course and caliber with no evidence of obstruction or inflammation. The appendix is normal. There is colonic diverticulosis. PERITONEUM: No ascites or free air. No lymphadenopathy. RETROPERITONEUM: No mass or adenopathy. REPRODUCTIVE: Prior hysterectomy. No adnexal masses. VASCULATURE: No abdominal aortic aneurysm. Gonadal vein phleboliths are present. MUSCULOSKELETAL: No acute fractures or aggressive osseous. OTHER: No other abnormality. IMPRESSION: 1. Asymmetric left perirenal fat stranding with left urothelial thickening along the left renal pelvis and extending to the proximal left ureter which can be seen with urinary tract infection/pyelonephritis, incompletely evaluated on this noncontrast CT examination. Correlation with urinalysis recommended. 2. Colonic diverticulosis. THIS IS AN ELECTRONICALLY VERIFIED FINAL REPORT 03/09/2025 5:58 PM - Electronically signed by Danny Ashby M.D. AT: AT Report ID: [id number] Reading Location: [id number] Procedure Note Danny Ashby MD - 03/09/2025 EXAM DESCRIPTION: CT ABDOMEN PELVIS WO CONTRAST REASON FOR STUDY: Sepsis, ? renal abcess Patient to ED from with complaint of bilateral lower back pain, chills, bodyaches. States that she has had painful with urination x 5 days. TECHNIQUE: CT scan of the abdomen and pelvis performed without intravenousand without oral contrast using helical scanning technique. Reconstructed coronal and sagittal MPR images reviewed. All images stored on PACS.Automated exposure control was used as a dose optimization technique for this examination. COMPARISON: None available FINDINGS: The sensitivity for detection of visceral lesions is diminished withoutthe use of intravenous contrast. LOWER CHEST: Mild scattered subsegmental atelectasis. Mild lingular and right middle lobe scarring. No pleural effusion. Imaged portions of the heart are normal. LIVER: Normal size. No identified cystic or solid masses. Focal fatty infiltration adjacent to the hepatic falciform ligament. GALLBLADDER: Normal. BILE DUCTS: No intrahepatic or extrahepatic ductal dilatation. SPLEEN: Normal size. No focal lesions. Splenules are present. PANCREAS: No identified cystic or solid masses. No significant calcifications. No adjacent inflammation or peripancreatic fluidcollections. Pancreatic duct not dilated. ADRENALS: There is a left adrenal gland lesion measuring 30 mm whichlikely reflects an adenoma considering Hounsfield unit characteristics. Right adrenal gland is normal. KIDNEYS/URINARY TRACT: There is asymmetric left perirenal fat strandingwith left urothelial thickening along the left renal pelvis and extending tothe proximal left ureter which can be seen with urinary tract infection/pyelonephritis, incompletely evaluated on this noncontrast CT examination. Mild bilateral renal atrophy. No calculi in the urinarytract. No discrete renal lesions on this noncontrast CT examination. No hydronephrosis or hydroureter. Urinary bladder is unremarkable. GI: The stomach is normal. The small bowel and colon are normal incourse and caliber with no evidence of obstruction or inflammation. The appendixis normal. There is colonic diverticulosis. PERITONEUM: No ascites or free air. No lymphadenopathy. RETROPERITONEUM: No mass or adenopathy. REPRODUCTIVE: Prior hysterectomy. No adnexal masses. VASCULATURE: No abdominal aortic aneurysm. Gonadal vein phlebolithsare present. MUSCULOSKELETAL: No acute fractures or aggressive osseous. OTHER: No other abnormality. IMPRESSION: 1. Asymmetric left perirenal fat stranding with left urothelial thickening along the left renal pelvis and extending to the proximal left ureterwhich can be seen with urinary tract infection/pyelonephritis, incompletely evaluated on this noncontrast CT examination. Correlation with urinalysis recommended. 2. Colonic diverticulosis. THIS IS AN ELECTRONICALLY VERIFIED FINAL REPORT 03/09/2025 5:58 PM - Electronically signed by Danny Ashby M.D. AT: AT Report ID: [id number] Reading Location: [id number] Aroldo Garza MD IMG CT PROCEDURES Final Res ult * (ABNORMAL) Urinalysis reflex to microscopic (03/09/2025 3:16 PM CDT) Color, ur Yellow Yellow Clarity, ur Clear Clear [facility] ([place]) Specific gravity, ur 1.007 1.003 - 1.030 [facility] ([place]) pH, urine 6.0 [facility] ([place]) Comment: Interpretive Data U rine pH is affected by diet, medications, systemic acid-base disturbances, and renal tubular function. pH may affect urinary stone formation. For example, urine pH below 6.0 may help reduce the tendency for calcium phosphate stones and pH greater than 6.0 may reduce the tendency for uric acid stone formation. Source: [facility] [place] Current Interpretive Data was last revised on 2017 Protein, ur ql Trace Negative [facility] ([place]) Glucose, ur ql Negative Negative [facility] ([place]) Ketones, ur Negative Negative [facility] ([place]) Bilirubin, ur Negative Negative [facility] ([place]) Blood, ur 1+(A) Negative [facility] ([place]) Urobilinogen, ur <2.0 <2.0 mg/dL [facility] ([place]) Nitrite, ur Negative Negative [facility] ([place]) Leukocyte esterase, ur 4+(A) Negative [facility] ([place]) UA reflex comment Reflex to microscopic UA will be performed. [facility] ([place]) Urine 03/09/2025 3:16 PM CDT 03/09/2025 3:19 PM CDT Aroldo Garza MD LAB URINE ORDERABLES Final Result [facility] ([place]) 1 [facility] Department [place] [address] * (ABNORMAL) Urinalysis, microscopic only (03/09/2025 3:16 PM CDT) WBC, ur >50(A) 0 - 5 /HPF RBC, ur 0-2 0 - 2 /HPF [facility] ([place]) Epithelial cells, squamous, ur 1-5 0 - 5 /HPF [facility] ([place]) Bacteria, ur 3+(A) [facility] ([place]) Urine 03/09/2025 3:16 PM CDT 03/09/2025 3:19 PM CDT Aroldo Garza MD LAB URINE ORDERABLES Final Result [facility] ([place]) 1 [facility] [place] [address] * (ABNORMAL) Urine culture Urine (03/09/2025 3:16 PM CDT) Report Final Report: Greater than or equal to 100,000 colonies/mL of Escherichia coli (.) Comment:Testing performed by : [facility], [address] [facility] [place] [address] Organism ESCHERICHIA COLI [facility] ([place]) Urine 03/09/2025 3:16 PM CDT 03/09/2025 8:40 PM CDT Narrative [facility] ([place]) - 03/11/2025 10:44 AM CDT Testing performed by [facility] ([phone]) Organism Antibiotic Method Susceptibility Escherichia coli Ampicillin INTERPRETATION Susceptible Escherichia coli Cefazolin INTERPRETATION Susceptible Escherichia coli Nitrofurantoin INTERPRETATION Susceptible Escherichia coli Gentamicin INTERPRETATION Susceptible Escherichia coli Trimethoprim with Sulfamethoxazole IN TERPRETATION Susceptible Escherichia coli Meropenem INTERPRETATION Susceptible Escherichia coli Cefepime INTERPRETATION Susceptible Escherichia coli Ciprofloxacin INTERPRETATION Susceptible Escherichia coli Ceftazidime INTERPRETATION Susceptible Escherichia coli Ceftriaxone INTERPRETATION Susceptible Escherichia coli Piperacillin/Tazobactam INTERPRETATIO N Susceptible Escherichia coli Cephalexin INTERPRETATION Susceptible Escherichia coli Cefuroxime-axetil INTERPRETATION Susceptible Escherichia coli Cefdinir INTERPRETATION Susceptible us Aroldo Garza MD LAB MICROBIOLOGY - GENERAL ORDERABLES Final Result [facility] ([place]) 1 [facility] [place] [address] * Sepsis Lactate w/ Reflex (03/09/2025 2:15 PM CDT) Sepsis Lactate 2.0 0.7 - 2.0 mmol/L Blood 03/09/2025 2:15 PM CDT 03/09/2025 2:27 PM CDT Aroldo Garza MD LAB BLOOD ORDERABLES Final Result Performing Organization Address City/[facility]/ZIP Co de Phone Number [facility] ([place]) 1 [facility] [place] [address] * eGFR (03/09/2025 2:15 PM CDT) eGFR >90 >=60 mL/min/1. 73 m2 Comment: Interpretive Data Reference Interval Normal >/= 90 mL/min/1.73m2 Mildly decreased* 60 - 89 mL/min/1.73m2 Mildly to moderately decreased 45 - 59 mL/min/1.73m2 Moderately to severely decreased 30 - 44 mL/min/1.73m2 Severely decreased 15 - 29 mL/min/1.73m2 Kidney Failure < 15 mL/min/1.73m2 *Relative to young adult level Estimated glomerular filtration rate is determined by the 2020 CKD-EPI equation recommended by the National Kidney Foundation (A Unifying Approach to GFR Estimation: Recommendations of the NKF-ASK Task Force on Reassessing the Inclusion of Race in Diagnosing Kidney Disease, JASN 2020). The CKD-EPI equation should not be used for patients with unstable renal function and has not been validated in children and those over 70. Current interpretive data was last reviewed 2021. Blood 03/09/2025 2:15 PM CDT 03/09/2025 2:27 PM CDT Aroldo Garza MD LAB BLOOD ORDERABLES Final Result [facility] ([place]) 1 [facility] [place] [address] * (ABNORMAL) Differential, auto (03/09/2025 2:15 PM CDT) Neutrophil abs 10.06(H) 1.50 - 6.50 K/cumm Imm gran abs 0.23(H) 0.00 - 0.10 K/cumm [facility] ([place]) Lymphocyte abs 0.27(L) 0.80 - 3.30 K/cumm [facility] ([place]) Monocyte abs 0.28 0.20 - 0.80 K/cumm [facility] ([place]) Eosinophil abs 0.01 0.00 - 0.50 K/cumm [facility] ([place]) Basophil abs 0.04 0.00 - 0.10 K/cumm [facility] ([place]) Neutrophil pct 92.3 % [facility] ([place]) Comment: Interpretive Data Percent cell count reference ranges are not reported, since discordance with absolute values may lead to misinterpretation of CBC data. Current Interpretive Data was last revised on 2017. Imm gran pct 2.1 % [facility] ([place]) Comment: Interpretive Data Percent cell count reference ranges are not reported, since discordance with absolute values may lead to misinterpretation of CBC data. Current Interpretive Data was last revised on 2017. Lymphocyte pct 2.5 % [facility] ([place]) Comment: Interpretive Data Percent cell count reference ranges are not reported, since discordance with absolute values may lead to misinterpretation of CBC data. Current Interpretive Data was last revised on 2017. Monocyte pct 2.6 % [facility] ([place]) Comment: Interpretive Data Percent cell count reference ranges are not reported, since discordance with absolute values may lead to misinterpretation of CBC data. Current Interpretive Data was last revised on 2017. Eosinophil pct 0.1 % [facility] ([place]) Comment: Interpretive Data Percent cell count reference ranges are not reported, since discordance with absolute values may lead to misinterpretation of CBC data. Current Interpretive Data was last revised on 2017. Basophil pct 0.4 % [facility] ([place]) Comment: Interpretive Data Percent cell count reference ranges are not reported, since discordance with absolute values may lead to misinterpretation of CBC data. Current Interpretive Data was last revised on 2017. Blood 03/09/2025 2:15 PM CDT 03/09/2025 2:27 PM CDT Aroldo Garza MD LAB BLOOD ORDERABLES Final Result [facility] ([place]) 1 [facility] [place] [address] * Thyroid Function [place] (03/09/2025 2:15 PM CDT) Pathologist [facility] TSH 2.84 0.30 - 4.20 mcIUnit/mL Blood 03/09/2025 2:15 PM CDT 03/09/2025 2:27 PM CDT Aroldo Garza MD LAB BLOOD ORDERABLES Final Result Performing Organization Address City/[facility]/ZIP Co de Phone Number [facility] ([place]) 1 [facility] [place] [address] * (ABNORMAL) CBC with auto differential (03/09/2025 2:15 PM CDT) Pathologist [facility] WBC 10.89(H) 3.80 - 9.90 K/cumm Hgb 14.4 11.9 - 15.5 g/dL [facility] ([place]) Hct 44.0 35.6 - 45.5 % [facility] ([place]) Plt 228 150 - 400 K/cumm [facility] ([place]) MPV 10.4 9.1 - 12.3 fL [facility] ([place]) RBC 4.50 3.90 - 5.20 M/cumm [facility] ([place]) MCV 97.8(H) 81.3 - 96.4 fL [facility] ([place]) MCH 32.0 27.1 - 33.3 pg [facility] ([place]) MCHC 32.7 32.3 - 35.7 g/dL [facility] ([place]) RDW CV 13.5 11.1 - 14.9 % [facility] ([place]) RDW SD 49.4(H) 35.7 - 48.1 fL [facility] ([place]) NRBC abs 0.00 0.00 - 0.01 K/cumm [facility] ([place]) Blood 03/09/2025 2:15 PM CDT 03/09/2025 2:27 PM CDT us Aroldo Garza MD LAB BLOOD ORDERABLES Final Result [facility] ([place]) 1 [facility] [place] [address] * (ABNORMAL) Comprehensive metabolic panel (03/09/2025 2:15 PM CDT) Sodium 136 135 - 145 mmol/L Potassium, pl 3.3 3.3 - 4.9 mmol/L [facility] ([place]) Chloride 101 97 - 110 mmol/L [facility] ([place]) CO2 21(L) 22 - 32 mmol/L [facility] ([place]) Anion gap 15 2 - 15 mmol/L [facility] ([place]) BUN 11 6 - 25 mg/dL [facility] ([place]) Creatinine 0.68 0.60 - 1.10 mg/dL [facility] ([place]) Glucose 89 70 - 199 mg/dL [facility] ([place]) Comment: Interpretive Data Fasting glucose >/= 126 mg/dl is diagnostic for diabetes. Fasting is defined as no caloric intake for at least 8 hours. Fasting glucose between 100 mg/dl to 125 mg/dl is diagnostic of prediabetes. In a patient with classic symptoms of hyperglycemia or hyperglycemic crisis, a random glucose >/= 200 mg/dl is diagnostic for diabetes. In the absence of unequivocal hyperglycemia, results should be confirmed by repeat testing. The classification and Diagnosis of Diabetes Diabetes Care 2021; 46: S19-S40. Current interpretive data was last revised 2022. Calcium 9.4 8.5 - 10.3 mg/dL [facility] ([place]) Bilirubin, total 0.8 0.1 - 1.2 mg/dL [facility] ([place]) Protein, pl 6.7 6.5 - 8.5 g/dL [facility] ([place]) Albumin 3.7 3.5 - 5.0 g/dL [facility] ([place]) Alk phos 118 40 - 130 Units/L [facility] ([place]) ALT 27 7 - 45 Units/L [facility] ([place]) AST 23 10 - 45 Units/L [facility] ([place]) Blood 03/09/2025 2:15 PM CDT 03/09/2025 2:27 PM CDT Aroldo Garza MD LAB BLOOD ORDERABLES Final Result [facility] ([place]) 1 [facility] [place] [address] * ECG 12 lead (03/09/2025 2:07 PM CDT) 03/09/2025 2:07 PM CDT Narrative [facility] - 03/09/2025 2:39 PM CDT Vent Rate: 147 bpm RR Interval: 406 msec MA Interval: 135 msec QRS Duration: 86 msec QT Interval: 322 msec QTC Interval: 406 msec P-R-T [place]: 62 - 27 - 74 degrees IMPRESSION: SINUS TACHYCARDIA, POSSIBLE ATRIAL FLUTTER NONSPECIFIC ST \T\ T-WAVE ABNORMALITY ABNORMAL RHYTHM ECG Electronically Signed By: Javier Treadwell MD Aroldo Garza MD ECG ORDERABLES Final Resul t [facility] from Last 3 Months Insurance [facility] CHOICE PLUS [facility] CHOICE PLUS [facility] CHOICE PLUS Care Teams Chemical Waste Management Technician Relationship Specialty Start Date End Date Barry Bowens MD [address] [place] [address] PCP - General Internal Medicine 03/09/25 Barry Bowens MD [address] [place] [address] Referring Physician Internal Medicine 06/27/24
--- OUTSIDE RECORDS SUMMARY | 2025-03-29 07:20 | XMS_ITS | Referral Summary ---
Author Organization [facility] Address [address] [place] [address] Care Team Providers Care Septic Tank Cleaner Name Role Phone Barry Bowens MD Unavailable [phone] Barry Bowens MD Primary Care Provider [phone] Encounters Date Type Department Care Team Description 03/14/2025 Results Follow-Up [facility] Emergency Department [address] [place] [address] Daniel Savage PA Urine culture Urine 03/09/2025 2:40 PM CDT - 03/09/2025 7:16 PM CDT Emergency [facility] Emergency Department [address] [place] [address] Aroldo Garza MD Pyelonephritis (Primary Dx) Discharge Disposition: Discharge to home or self care from Last 3 Months Allergies No known active allergies Medications spironolactone [...] MG UNDER THE SKIN 1 TIME WEEKLY Active amoxicillin-cla vulanate (AUGMENTIN) 875-125 mg per tablet Take 1 tablet by mouth every 12 (twelve) hours 14 tablet Active Active Problems Problem Noted Date Diagnosed [...] on file 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 AT: AT Report ID: [id number] Reading Location: [id number] Procedure Note Danny Ashby MD - 03/09/2025 EXAM DESCRIPTION: CT ABDOMEN PELVIS WO CONTRAST REASON FOR STUDY: Sepsis, ? renal abcess Patient to ED from UC with complaint of bilateral lower back pain, [...] Danny Ashby M.D. AT: AT Report ID: [id number] Reading Location: [place] [address] Aroldo Garza MD IMG CT PROCEDURES Final [...] tendency for uric acid stone formation. Source: [facility] Current Interpretive Data was last revised on 2017 Protein, ur ql Trace Negative [facility] ([place]) Glucose, ur ql Negative Negative [facility] ([place]) Ketones, ur Negative Negative [facility] ([place]) Bilirubin, ur Negative Negative [facility] ([place]) Blood, ur 1+(A) Negative [facility] ([place]) Urobilinogen, ur <2.0 <2.0 mg/dL [facility] ([place]) Nitrite, ur Negative Negative [facility] ([place]) Leukocyte esterase, ur 4+(A) Negative [facility] ([place]) UA reflex comment Reflex to microscopic UA will be performed. [facility] ([place]) Urine 03/09/2025 3:16 PM CDT 03/09/2025 3:19 PM CDT Aroldo Garza MD LAB URINE ORDERABLES Final Result [facility] ([place]) 1 [facility] Department [place] [address] * (ABNORMAL) Urinalysis, microscopic only (03/09/2025 3:16 [...] ORDERABLES Final Result [facility] ([place]) 1 [facility] Department [place] [address] * (ABNORMAL) Urine culture Urine (03/09/2025 3:16 PM CDT) Report Final Report: Greater than or equal to 100,000 colonies/mL of Escherichia coli (.) Comment:Testing performed by : [facility], [address] [facility] [place]., [address] Organism [facility] ([place]) Urine 03/09/2025 3:16 PM CDT 03/09/2025 8:40 PM CDT Narrative [facility] ([place]) - 03/11/2025 10:44 AM CDT Testing performed by [facility] ([phone]) Organism Antibiotic Method Susceptibility Escherichia coli Ampicillin [...] INTERPRETATION Susceptible Escherichia coli Cefdinir INTERPRETATION Susceptible Aroldo Garza MD LAB MICROBIOLOGY - GENERAL ORDERABLES Final Result [facility] ([place]) 1 [facility] [place] [address] * Sepsis Lactate w/ Reflex (03/09/2025 2:15 PM CDT) Sepsis Lactate 2.0 0.7 - 2.0 mmol/L Blood 03/09/2025 2:15 PM CDT 03/09/2025 2:27 PM CDT Aroldo Garza MD LAB BLOOD ORDERABLES Final Result Performing Organization Address [facility] Co de Phone Number [facility] ([place]) 1 [facility] [place] [address] * eGFR (03/09/2025 2:15 PM CDT) eGFR [...] LAB BLOOD ORDERABLES Final Result [facility] ([place]) 1 [facility] Department [place] [address] * (ABNORMAL) Differential, auto (03/09/2025 2:15 PM CDT) Neutrophil abs 10.06(H) 1.50 - 6.50 K/cumm Imm gran abs 0.23(H) 0.00 - 0.10 K/cumm [facility] ([place]) Lymphocyte abs 0.27(L) 0.80 - 3.30 K/cumm [facility] ([place]) Monocyte abs 0.28 0.20 - 0.80 K/cumm [facility] ([place]) Eosinophil abs 0.01 0.00 - 0.50 K/cumm [facility] ([place]) Basophil abs 0.04 0.00 - 0.10 K/cumm [facility] ([place]) Neutrophil pct 92.3 % [facility] ([place]) Comment: Interpretive Data Percent cell count reference ranges are not reported, since discordance with absolute values may lead to misinterpretation of CBC data. Current Interpretive Data was last revised on 2017. Imm gran pct 2.1 % [facility] ([place]) Comment: Interpretive Data Percent cell count reference [...] 2017. Monocyte pct 2.6 % [facility] ([place]) Comment: Interpretive Data Percent cell count reference ranges are not reported, since discordance with absolute values may lead to misinterpretation of CBC data. Current Interpretive Data was last revised on 2017. Eosinophil pct 0.1 % [facility] ([place]) Comment: Interpretive Data Percent cell count reference [...] ORDERABLES Final Result [facility] ([place]) 1 [facility] [place] [address] * Thyroid Function Sabina (03/09/2025 2:15 PM CDT) Pathologist [facility] TSH 2.84 0.30 - 4.20 mcIUnit/mL Blood 03/09/2025 2:15 PM CDT 03/09/2025 2:27 PM CDT Aroldo Garza MD LAB BLOOD ORDERABLES Final Result Performing Organization Address [facility] Co de Phone Number [facility] ([place]) 1 [place] [address] * (ABNORMAL) CBC with auto differential (03/09/2025 2:15 PM CDT) Pathologist [facility] WBC 10.89(H) 3.80 - 9.90 K/cumm Hgb [...] ([place]) MCH 32.0 27.1 - 33.3 pg [facility] ([place]) MCHC 32.7 32.3 - 35.7 g/dL [facility] ([place]) RDW CV 13.5 11.1 - 14.9 % [facility] ([place]) RDW SD 49.4(H) 35.7 - 48.1 fL [facility] ([place]) NRBC abs 0.00 0.00 - 0.01 K/cumm [facility] ([place]) Blood 03/09/2025 2:15 PM CDT 03/09/2025 2:27 PM CDT us Aroldo Garza MD LAB BLOOD ORDERABLES Final Result [facility] ([place]) 1 [facility] Department [place] [address] * (ABNORMAL) Comprehensive metabolic panel (03/09/2025 2:15 PM CDT) Sodium 136 135 - 145 mmol/L Potassium, pl 3.3 3.3 - 4.9 mmol/L [facility] ([place]) Chloride 101 97 - 110 mmol/L [facility] ([place]) CO2 21(L) 22 - 32 mmol/L [facility] ([place]) Anion gap 15 2 - 15 mmol/L [facility] ([place]) BUN 11 6 - 25 mg/dL [facility] ([place]) Creatinine 0.68 0.60 - 1.10 mg/dL [facility] ([place]) Glucose 89 70 - 199 mg/dL [facility] ([place]) Comment: Interpretive Data Fasting glucose [...] classification and Diagnosis of Diabetes Diabetes Care 202; 46: S19-S40. Current interpretive data was last [...] BLOOD ORDERABLES Final Result Performing Organization Address [facility] Co de Phone Number [facility] ([place]) 1 [facility] Department [place] [address] * ECG 12 lead (03/09/2025 2:07 PM CDT) 03/09/2025 2:07 PM CDT Narrative [facility] - 03/09/2025 2:39 PM CDT Vent Rate: 147 bpm RR Interval: 406 msec W[place] Interval: 135 msec QRS Duration: 86 msec QT Interval: 322 msec QTC Interval: 406 msec P-R-T [place]: 62 - 27 - 74 degrees IMPRESSION: SINUS TACHYCARDIA, POSSIBLE ATRIAL FLUTTER NONSPECIFIC ST \T\ T-WAVE ABNORMALITY ABNORMAL RHYTHM ECG Electronically Signed By: Javier Treadwell MD us Aroldo Garza MD ECG ORDERABLES Final Resul t Performing Organization Address [facility]/ZIP Co de Phone Number [facility] from Last 3 Months Insurance [facility] CHOICE PLUS UHC CHOICE PLUS UHC CHOICE PLUS Care Teams Septic Tank Cleaner Relationship Specialty Start Date End Date Barry Bowens MD [address] [place], [place] [id number] PCP - General Internal Medicine 03/09/25 Barry Bowens MD [address] [place], [place] [phone] Referring Physician Internal Medicine 06/27/24
== END 2025-03-29 07:13 | disposition home or self-care (01) ==
LOC: CHSIMG 07:13
PROVIDERS: PCP Internal Medicine; Visit Provider Internal Medicine
DX: N12 Tubulo-interstitial nephritis, not specified as acute or chronic (principal); R31.9 Hematuria, unspecified; E27.8 Other specified disorders of adrenal gland
CPT/HCPCS: 74176

== ENCOUNTER 2025-04-28 08:01 | Outpatient (CLI) | payer OTHER, SELFPAY ==
--- NOTE | ~2025-04-28 | MR_ITS ---
EXAMINATION: MR abdomen wo/w con DATE: 04/28/2025 09:28 INDICATION: Left adrenal mass. TECHNIQUE: Magnetic resonance imaging (MRI) of the abdomen was performed without and with 20 mL Multihance intravenous contrast. Sequences included coronal and axial T2-weighted SS-FSE, axial FS 2D-FIESTA, coronal and axial dual-echo T1- weighted FSPGR, axial T1-weighted LAVA, and axial STIR FSE. Postcontrast axial T1-weighted LAVA images were obtained in a time course. Postcontrast coronal T1-weighted LAVA images were obtained. COMPARISON: CT dated 03/29/2025 FINDINGS: Heart size is normal. No pericardial or pleural effusion. There are several scattered subcentimeter T2 hyperintense nonenhancing hepatic cysts. Gallbladder, spleen, pancreas, right adrenal gland and bilateral kidneys are normal. 2.9 cm left adrenal adenoma with prominent signal dropout on opposed phase imaging. Also consistent with adenomas the low density with mean HU of 10-[address] Bowels are unremarkable with no dilation to suggest obstruction. No pathologically enlarged abdominal or upper pelvic lymphadenopathy. 25 degrees lumbar levoscoliosis with severe left-sided predominant disc height loss with fibrofatty degenerative endplate changes at L2-L3. Additional severe left-sided disc height loss with fibrofatty degenerative endplate changes at L4-L5. Schmorl's node along the superior endplate of T10 also with surrounding fibrofatty endplate changes. Marrow signal is otherwise normal throughout. IMPRESSION: 1. 2.9 cm left adrenal mass with signal dropout on opposed phase imaging and low density on prior CT diagnostic of an adenoma. Reviewed, dictated and finalized at location A. IMPRESSION: 1. 2.9 cm left adrenal mass with signal dropout on opposed phase imaging and lo w density on prior CT diagnostic of an adenoma.
== END 2025-04-28 08:02 | disposition home or self-care (01) ==
PROVIDERS: PCP Internal Medicine; Visit Provider Internal Medicine
DX: E27.8 Other specified disorders of adrenal gland (principal)
CPT/HCPCS: 74183; A9577